=== PATIENT | male | born 1930 | race Caucasian/White ===

== ENCOUNTER 2019-09-09 16:41 | Inpatient (IN) | payer MEDICARE ==
--- NOTE | 2019-09-09 17:06 | ER Document Report ---
ED Medical Screen (RME) - General Chief Complaint: Abdominal Pain Stated Complaint: ABDOMINAL PAIN Time Seen by Provider: 09/09/19 16:56 Primary Care Provider: KOKI MCKEON MD [Primary Care Provider] - Follow up as needed Mode of Arrival: Medic Information source: Patient Notes: 88-year-old male came into the emergency department with complaints of sudden onset abdominal pain approximately 2 hours prior to arrival. Patient's reports nausea but denies any vomiting, diarrhea or fever. She states she has never seen a back pain like this before patient is shaking in the bed, he appears to be in significant distress. Patient does have a history of diverticulitis, states this does not feel similar at all. Patient is mildly tachycardic with a heart rate of 110-115, respiratory rate is 34, blood pressure elevated at 165/81. Due to the sudden onset of pain as well as nature of patient's presentation I am concerned for acute abdomen versus dissection. Orders placed in system I have greeted and performed a rapid initial assessment of this patient. A comprehensive ED assessment and evaluation of the patient, analysis of test results and completion of the medical decision making process will be conducted by additional ED providers. I have specifically instructed the patient or family members with the patient to immediately return to any nursing staff should anything change in the patient's condition or with their chief complaint. - Related Data Allergies/Adverse Reactions: No Known Allergies Allergy (Unverified 02/11/12 04:28) Past Medical History - Past Medical History Cardiac Medical History: Reports: Hx Hypercholesterolemia, Hx Hypertension Endocrine Medical History: Reports: Hx Diabetes Mellitus Type 2 GI Medical History: Reports: Hx Hiatal Hernia - 4 - Immunizations Hx Diphtheria, Pertussis, Tetanus Vaccination: Yes Doctor's Discharge - Discharge Referrals: KOKI MCKEON MD [Primary Care Provider] - Follow up as needed
[2019-09-09] MEDS ORDERED: MORPHINE SULFATE 10 MG/ML INJ IV ONE (17:11)
[2019-09-09] MEDS ORDERED: ONDANSETRON HCL INJ/PF 4 MG/2 ML SDV IV ONE (17:11)
[2019-09-09 17:40] LABS: ABSOLUTE LYMPHOCYTES (AUTO) 0.7 10^3/uL (0.5-4.7); ABSOLUTE MONOCYTES (AUTO) 0.2 10^3/uL (0.1-1.4); ABSOLUTE NEUT (AUTO) 8.4 10^3/uL (1.7-8.2); BASOPHILS % (AUTO) 0.1 % (0-2); EOSINOPHILS % (AUTO) 0.4 % (0-6); HEMATOCRIT 39.9 % (37.9-51.0); HEMOGLOBIN 13.7 g/dL (13.5-17.0); LYMPHOCYTES % (AUTO) 7.6 % (13-45); MEAN CORPUSCULAR HEMOGLOBIN 31.8 pg (27.0-33.4); MEAN CORPUSCULAR HGB CONC 34.2 g/dL (32.0-36.0); MEAN CORPUSCULAR VOLUME 93 fl (80-97); MONOCYTES % (AUTO) 1.8 % (3-13); PLATELET COUNT 174 10^3/uL (150-450); RED CELL DISTRIBUTION WIDTH 13.6 % (11.5-14.0); SEGMENTED NEUTROPHILS % (AUTO) 90.1 % (42-78); TOTAL CELLS COUNTED % (AUTO) 100 %; WHITE BLOOD COUNT 9.3 10^3/uL (4.0-10.5)
[2019-09-09 17:53] LABS: ALBUMIN 3.7 g/dL (3.5-5.0); ALKALINE PHOSPHATASE 322 U/L (38-126); ASPARTATE AMINO TRANSFERASE 688 U/L (17-59); BILIRUBIN,DIRECT 1.3 mg/dL (0.0-0.4); BILIRUBIN,TOTAL 1.9 mg/dL (0.2-1.3); BLOOD UREA NITROGEN 27 mg/dL (7-20); CARBON DIOXIDE 24 mmol/L (22-30); GLUCOSE 125 mg/dL (75-110); POTASSIUM 3.9 mmol/L (3.6-5.0); TOTAL PROTEIN 6.6 g/dL (6.3-8.2)
[2019-09-09] MEDS ORDERED: NORMAL SALINE 1000 ML 1,000 ML IV ONE (17:53)
[2019-09-09] MEDS ORDERED: NORMAL SALINE 500 ML IV ONE ×2 (17:53→18:49)
--- NOTE | 2019-09-09 17:54 | ER Document Report ---
ED General - General Chief Complaint: Abdominal Pain Stated Complaint: ABDOMINAL PAIN Time Seen by Provider: 09/09/19 16:56 Mode of Arrival: Medic - Related Data Allergies/Adverse Reactions: No Known Allergies Allergy (Unverified 02/11/12 04:28) Past Medical History - General Information source: Patient - Social History Smoking Status: Current Every Day Smoker Family History: Reviewed & Not Pertinent - Past Medical History Cardiac Medical History: Reports: Hx Hypercholesterolemia, Hx Hypertension Endocrine Medical History: Reports: Hx Diabetes Mellitus Type 2 GI Medical History: Reports: Hx Hiatal Hernia - 4 - Immunizations Hx Diphtheria, Pertussis, Tetanus Vaccination: Yes Physical Exam - Vital signs Vitals: Resp Pulse Ox 18 90 L 09/09/19 16:56 09/09/19 16:56 - Notes Notes: Patient presents emerge department planing acute onset periumbilical pain started 3 hours prior to arrival. He had some nausea with this but no vomiting. Denies any chest pain shortness of breath fevers cough diarrhea or dysuria. said they had pizza for lunch which they usually do not have he does not really have a previous history of fatty food intolerance. He says it still a bit different from his CV[facility] diverticulitis. Pain does not radiate anywhere. He has no pain in his back there is no ripping or tearing in his back and this weakness in his extremities His medical history significant for hypertension diverticulitis. He had previous inguinal hernia repair. He has no diabetes or heart disease. Social history he does not smoke or drink at all Review of systems pertinent positives and negatives in HPI otherwise all the systems were reviewed and acutely negative PHYSICIAN EXAM -vital signs are noted triage note and note from triage reviewed GENERAL: Well-appearing, well-nourished and in __no acute distress when I saw him however when he was seen by the midlevel he was uncomfortable and has rec eived pain medicine____ HEAD: Atraumatic, normocephalic. EYES: Pupils equal round and reactive to light, extraocular movements intact, sclera anicteric, conjunctiva are normal. ENT: nares patent, oropharynx clear without exudates. Lightly dry mucous membranes. NECK: supple without lymphadenopathy LUNGS: Breath sounds clear to auscultation bilaterally and equal. No wheezes rales or rhonchi. HEART: Rapid rate and regular without murmurs ABDOMEN: Soft, nontender, even to deep palpation normoactive bowel sounds. Presenting pulsatile masses. He has good femoral pulses no radial femoral delay. Good pulses in his feet EXTREMITIES: No deformity, no edema. NEUROLOGICAL: He is awake and alert knows he is in the hospital his name and his date of does not know the year but family says does not was know that. Medical smile and facial expressions. Strength is 5/5 in the upper extremities. The quadriceps of 5/5 dorsiflexion plantarflexion of foot are 1/5 bilaterally which says is chronic PSYCH: Normal mood, normal affect. SKIN: Warm, Dry, normal turgor, no rashes or lesions noted. BACK-nontender in the midline there is no pain with sitting Genitourinary without lesions testes and epididymis are nontender Differential diagnosis peptic ulcer viral syndrome small bowel obstruction cholecystitis rhythm Course - Re-evaluation Re-evalutation: 09/09/19 22:41 ED patient is remained stable he did drop his O2 sats after receiving pain medicines was placed on supplemental O2. Was given IV fluids and antibiotics. Decision-making patient presents with abdominal pain with evidence of cholecystitis with possible a common duct stone. I have consult general surgery seen the patient and initially was going to admit the patient however they have requested now that the patient be admitted to the hospitalist consult and I have discussed case with the hospitalist - Vital Signs Vital signs: Temp Pulse Resp BP Pulse Ox 98.4 F 16 104/73 96 09/09/19 22:04 09/09/19 22:04 09/09/19 22:04 09/09/19 22:04 - Laboratory Result Diagrams: 09/09/19 16:55 09/09/19 16:55 Laboratory results interpreted by me: 09/09/19 09/09/19 16:55 16:55 RBC 4.30 L Lymph % (Auto) 7.6 L Dickens % (Auto) 1.8 L Absolute Neuts (auto) 8.4 H Seg Neutrophils % 90.1 H Sodium 153.7 H Anion Gap 24 H BUN 27 H Glucose 125 H Total Bilirubin 1.9 H Direct Bilirubin 1.3 H AST 688 H Alkaline Phosphatase 322 H - Diagnostic Test Radiology reviewed: Reports reviewed - EKG Interpretation by Me Additional EKG results interpreted by me: 09/09/19 22:42 G shows a sinus tachycardia with some artifact and nonspecific ST wave changes Critical Care Note - Critical Care Note Total time excluding time spent on procedures (mins): 35 Discharge - Discharge Clinical Impression: Cholecystitis Condition: Good Disposition: ADMITTED INPATIENT Admitting Provider: Alyx (Hospitalist) Unit Admitted: Telemetry
[2019-09-09 17:58] LABS: CHLORIDE 106 mmol/L (98-107)
[2019-09-09 17:59] LABS: ANION GAP 24 (5-19)
--- NOTE | 2019-09-09 18:14 | RADIOLOGY REPORT (SQ) ---
EXAM DESCRIPTION: CTA CHEST; CTA ABDOMEN; CTA PELVIS COMPLETED DATE/TIME: 09/09/2019 5:40 pm REASON FOR STUDY: SUDDEN ONSET ABD PAIN COMPARISON: None. TECHNIQUE: CT scan of the aorta extending to the iliac bifurcation performed with and without intrav enous contrast using helical scanning technique with dynamic intravenous contrast injection. Images r eviewed with lung, soft tissue, and bone windows. Reconstructed coronal and sagittal MPR images revie wed. All images stored on PACS. Advanced 3D imaging as volume rendering, MIPS, SSD performed? no All CT scanners at this facility use dose modulation, iterative reconstruction, and/or weight based d osing when appropriate to reduce radiation dose to as low as reasonably achievable (ALARA). [facility]: Dose Right [facility]: CareDose [facility]: Dose Right [facility]: Teradose 4D [facility]: SRCH2 CONTRAST TYPE AND DOSE: contrast/concentration: Isovue 350.00 mg/ml; Total Contrast Delivered: 70.0 ml; Total Saline Delivered: 80.0 ml 70 mL Isovue 350- low osmolar. RENAL FUNCTION: Stat examination. LIMITATIONS: None. FINDINGS: NON-CONTRASTED IMAGING: No intramural hematoma. POST-CONTRAST IMAGING: AORTA AND VESSELS: Moderate calcified atherosclerotic changes and tortuosity. No aneurysm. No dissec tion. Renal arteries, SMA, celiac without stenosis. BASE OF THE NECK: Enlarged heterogeneous thyroid isthmus and right lobe. LUNGS: Patent airways. Bibasilar atelectasis. MEDIASTINUM: Left atrial enlargement. No pericardial effusion. Coronary calcifications. No large filling defect within the main pulmonary arterial vasculature. No lymphadenopathy. THORACIC WALL: Mild gynecomastia. LIVER: Normal size. Common bile duct measures at the upper limits of normal for age at 9 mm. No int rahepatic biliary ductal dilatation. SPLEEN: Normal size. No focal lesions. PANCREAS: Fatty atrophic changes. GALLBLADDER: Hydropic gallbladder containing several large gallstones measuring up to 2 cm. Possible small amount of pericholecystic fluid. No obvious wall thickening. ADRENAL GLANDS: No significant masses or asymmetry. RIGHT KIDNEY AND URETER: No mass, calculi or urinary tract obstruction. LEFT KIDNEY AND URETER: Renal sinus cysts. No calculi or urinary tract obstruction. RETROPERITONEUM: No retroperitoneal adenopathy, hemorrhage or masses. BOWEL AND PERITONEAL CAVITY: Nondistended small bowel. Redundant transverse colon. Severe diffuse d iverticular disease without wall thickening or surrounding inflammatory changes. APPENDIX: Normal. ABDOMINAL WALL: No masses. No hernias. BONY STRUCTURES: Degenerative changes throughout the spine. No acute findings. 3-D IMAGING: Confirms the above findings. OTHER: No other significant finding. IMPRESSION: No aortic aneurysm, dissection or significant stenosis. Hydropic gallbladder and cholelithiasis with possible small amount of pericholecystic fluid, findings which may be seen with acute cholecystitis. Common bile duct measuring at the upper limits of greyson l for age at 9 mm without obvious obstructing process. Severe diffuse colon diverticulosis without evidence of acute diverticulitis. Coronary artery disease. Goiter. TECHNICAL DOCUMENTATION: JOB ID: [id number] Quality ID # [id number]: Final reports with documentation of one or more dose reduction techniques (e.g., Au tomated exposure control, adjustment of the mA and/or kV according to patient size, use of iterative reconstruction technique) 2010 [employer]- All Rights Reserved Reading location - IP/workstation name: [email or web address]--[email or web address]
--- NOTE | 2019-09-09 18:14 | RADIOLOGY REPORT (SQ) ---
EXAM DESCRIPTION: CTA CHEST; CTA ABDOMEN; CTA PELVIS COMPLETED DATE/TIME: 09/09/2019 5:40 pm REASON FOR STUDY: SUDDEN ONSET ABD PAIN COMPARISON: None. TECHNIQUE: CT scan of the aorta extending to the iliac bifurcation performed with and without intrav enous contrast using helical scanning technique with dynamic intravenous contrast injection. Images r eviewed with lung, soft tissue, and bone windows. Reconstructed coronal and sagittal MPR images revie wed. All images stored on PACS. Advanced 3D imaging as volume rendering, MIPS, SSD performed? no All CT scanners at this facility use dose modulation, iterative reconstruction, and/or weight based d osing when appropriate to reduce radiation dose to as low as reasonably achievable (ALARA). [facility]: Dose Right [facility]: CareDose [facility]: Dose Right [facility]: Teradose 4D [facility]: Fetchnotes CONTRAST TYPE AND DOSE: contrast/concentration: Isovue 350.00 mg/ml; Total Contrast Delivered: 70.0 ml; Total Saline Delivered: 80.0 ml 70 mL Isovue 350- low osmolar. RENAL FUNCTION: Stat examination. LIMITATIONS: None. FINDINGS: NON-CONTRASTED IMAGING: No intramural hematoma. POST-CONTRAST IMAGING: AORTA AND VESSELS: Moderate calcified atherosclerotic changes and tortuosity. No aneurysm. No dissec tion. Renal arteries, SMA, celiac without stenosis. BASE OF THE NECK: Enlarged heterogeneous thyroid isthmus and right lobe. LUNGS: Patent airways. Bibasilar atelectasis. MEDIASTINUM: Left atrial enlargement. No pericardial effusion. Coronary calcifications. No large filling defect within the main pulmonary arterial vasculature. No lymphadenopathy. THORACIC WALL: Mild gynecomastia. LIVER: Normal size. Common bile duct measures at the upper limits of normal for age at 9 mm. No int rahepatic biliary ductal dilatation. SPLEEN: Normal size. No focal lesions. PANCREAS: Fatty atrophic changes. GALLBLADDER: Hydropic gallbladder containing several large gallstones measuring up to 2 cm. Possible small amount of pericholecystic fluid. No obvious wall thickening. ADRENAL GLANDS: No significant masses or asymmetry. RIGHT KIDNEY AND URETER: No mass, calculi or urinary tract obstruction. LEFT KIDNEY AND URETER: Renal sinus cysts. No calculi or urinary tract obstruction. RETROPERITONEUM: No retroperitoneal adenopathy, hemorrhage or masses. BOWEL AND PERITONEAL CAVITY: Nondistended small bowel. Redundant transverse colon. Severe diffuse d iverticular disease without wall thickening or surrounding inflammatory changes. APPENDIX: Normal. ABDOMINAL WALL: No masses. No hernias. BONY STRUCTURES: Degenerative changes throughout the spine. No acute findings. 3-D IMAGING: Confirms the above findings. OTHER: No other significant finding. IMPRESSION: No aortic aneurysm, dissection or significant stenosis. Hydropic gallbladder and cholelithiasis with possible small amount of pericholecystic fluid, findings which may be seen with acute cholecystitis. Common bile duct measuring at the upper limits of greyson l for age at 9 mm without obvious obstructing process. Severe diffuse colon diverticulosis without evidence of acute diverticulitis. Coronary artery disease. Goiter. TECHNICAL DOCUMENTATION: JOB ID: [id number] Quality ID # [id number]: Final reports with documentation of one or more dose reduction techniques (e.g., Au tomated exposure control, adjustment of the mA and/or kV according to patient size, use of iterative reconstruction technique) 2010 [employer]- All Rights Reserved Reading location - IP/workstation name: [email or web address]--[email or web address]
[2019-09-09] MEDS ORDERED: PIPERACILLIN/TAZOBACTAM 3.375 GM VIAL IV ONE ×2 (18:48→23:33)
--- NOTE | 2019-09-09 19:33 | EKG REPORT ---
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
--- NOTE | 2019-09-09 19:56 | RADIOLOGY REPORT (SQ) ---
EXAM DESCRIPTION: U/S ABDOMEN LIMITED W/O DOP COMPLETED DATE/TIME: 09/09/2019 7:36 pm REASON FOR STUDY: pain COMPARISON: None. TECHNIQUE: Dynamic and static grayscale images acquired of the abdomen and recorded on PACS. Additio nal selected color Doppler and spectral images recorded.Study limited due to acoustical interference from fat or from air in the bowel. LIMITATIONS: Study limited due to acoustical interference from fat or from air in the bowel. FINDINGS: PANCREAS: Not visualized. LIVER: Poorly visualized. LIVER VASCULATURE: Poorly visualized. GALLBLADDER: Multiple gallstones with increased gallbladder wall thickness, 3.7 mm. No pericholecysti c fluid identified. ULTRASOUND-DETECTED VALLES'S SIGN: Negative. Bile DUCTS: CBD measures 9.7 mm diameter. No filling defects. INFERIOR VENA CAVA: Normal flow. AORTA: No aneurysm identified. RIGHT KIDNEY: Normal size. Normal echogenicity. No solid or suspicious masses. No hydronephros is. No calcifications. PERITONEAL AND RIGHT PLEURAL SPACE: No ascites or effusions. OTHER: No other significant findings. IMPRESSION: Multiple gallstones with increased gallbladder wall thickness, 3.7 mm. No pericholecysti c fluid identified.CBD measures 9.7 mm diameter. No filling defects. Poorly visualized pancreas and liver due to acoustical interference from fat -bowel gas. TECHNICAL DOCUMENTATION: JOB ID: [id number] [place]-72 2010 [employer]- All Rights Reserved Reading location - IP/workstation name: [facility]
[2019-09-09] MEDS ORDERED: METOPROLOL TARTRATE PF/INJ 5 MG/5 ML SDV IV PRN (21:32)
[2019-09-09] MEDS ORDERED: MORPHINE SULFATE 10 MG/ML INJ IV PRN ×3 (21:32)
[2019-09-09] MEDS ORDERED: ACETAMINOPHEN 650 MG SUPP.RECT PR PRN (21:32)
[2019-09-09] MEDS ORDERED: LEVALBUTEROL HCL NEB 0.63 MG/3 ML AMPUL NEB PRN (21:32)
[2019-09-09] MEDS ORDERED: HYDRALAZINE HCL INJ/PF 20 MG/1 ML SDV IV PRN (21:32)
[2019-09-09] MEDS ORDERED: DEXTROSE 50%-WATER 25 GM/50 ML DISP.SYRIN IV PRN ×2 (21:33)
[2019-09-09] MEDS ORDERED: GLUCAGON,HUMAN RECOMB 1 MG INJ IM PRN (21:33)
[2019-09-09] MEDS ORDERED: DEXTROSE 40% GEL 15 GM TUBE PO PRN ×2 (21:33)
--- NOTE | 2019-09-09 22:16 | PDOC CONSULTATION ---
Consultation Consult Date: 09/09/19 Provider Consulted: PALMA SMITH Consult reason:: Right upper quadrant pain History of Present Illness Admission Date/PCP: KOKI MCKEON Patient complains of: Epigastric and right upper quadrant pain History of Present Illness: The patient is an 88-year-old male who is brought to the emergency department by his . 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 The patient uses a walker for limited ambulation. He has a past medical history of hypertension, inguinal hernia repair. denies previous stroke, cardiac condition, or other major medical problems. The patient comes to the hospital with a complaint of epigastric and upper abdominal pain with intense nausea for the past 24 hours. The and the patient denies similar pain in the past. An ultrasound of the gallbladder has been done revealing a thickened gallbladder wall approximately 3.7 mm, a dilated common bile duct measuring approximately 9.7 mm, and multiple gallstones. Similar findings are identified on CT scan. His blood work reveals a moderately elevated total bilirubin of 1.9 mostly direct (1.3) with transaminitis (elevated AST / ALT= 688 / 599, respectively) and elevated alkaline phosphatase, 322. The patient appears to have poor understanding of his surroundings; however, he is somewhat answering appropriately to some of the questions during the interview. Past Medical History Cardiac Medical History: Reports: Hyperlipidema, Hypertension Endocrine Medical History: Reports: Diabetes Mellitus Type 2 GI Medical History: Reports: Hiatal Hernia - 4 Social History Smoking Status: Unknown if Ever Smoked Family History Parental Family History Reviewed: No Children Family History Reviewed: No Sibling(s) Family History Reviewed.: No Medication/Allergy Home Medications: Finasteride 5 mg PO 02/11/12 Lisinopril [Prinivil 40 mg Tablet] 02/11/12 Lovastatin [Mevacor] 02/11/12 Omeg3/Dha/Epa/Fish Oil/L.casei [Restora Capsule] 02/11/12 Oxybutynin Chloride 02/11/12 Terazosin HCl 02/11/12 Allergies/Adverse Reactions: No Known Allergies Allergy (Unverified 02/11/12 04:28) Physical Exam Vital Signs: Temp Pulse Resp BP Pulse Ox 97.8 F 20 105/62 95 09/09/19 17:00 09/09/19 19:01 09/09/19 19:00 09/09/19 19:01 Intake & Output 09/08/19 09/09/19 09/10/19 06:59 06:59 06:59 Intake Total 1000 Balance 1000 Weight 77.111 kg General appearance: PRESENT: no acute distress, thin, other - Patient appears to be forgetful, slow to respond to questions Head exam: PRESENT: atraumatic, normocephalic Eye exam: PRESENT: EOMI Mouth exam: PRESENT: dry mucosa Teeth exam: PRESENT: poor dentation Neck exam: PRESENT: other - Recent promotion Respiratory exam: PRESENT: clear to auscultation mayank, decreased breath sounds Cardiovascular exam: PRESENT: RRR GI/Abdominal exam: PRESENT: hypoactive bowel sounds, soft, tenderness - In the right upper quadrant and epigastrium, no masses appreciated, Rectal exam: PRESENT: deferred Extremities exam: PRESENT: other - Decreased range of motion of both shoulders, hips, and knees Neurological exam: PRESENT: altered - Patient appears to have a poor understanding of his surroundings, other - Decreased motor function below knee bilaterally, decreased handgrip bilaterally Results Laboratory Results: 09/09/19 16:55 09/09/19 16:55 09/09/19 09/09/19 09/09/19 16:55 16:55 17:46 WBC 9.3 RBC 4.30 L Hgb 13.7 Hct 39.9 MCV 93 MCH 31.8 MCHC 34.2 RDW 13.6 Plt Count 174 Seg Neutrophils % 90.1 H Sodium 153.7 H Potassium 3.9 Chloride 106 Carbon Dioxide 24 Anion Gap 24 H BUN 27 H Creatinine 0.80 Est GFR ( Amer) > 60 Glucose 125 H Lactic Acid 0.9 Calcium 9.0 Total Bilirubin 1.9 H AST 688 H Alkaline Phosphatase 322 H Total Protein 6.6 Albumin 3.7 Lipase 69.0 09/09/19 16:55 Troponin I < 0.012 Impressions: Chest/Abdomen CTA 09/09/19 16:59 IMPRESSION: No aortic aneurysm, dissection or significant stenosis. Hydropic gallbladder and cholelithiasis with possible small amount of pericholecystic fluid, findings which may be seen with acute cholecystitis. Common bile duct measuring at the upper limits of normal for age at 9 mm without obvious obstructing process. Severe diffuse colon diverticulosis without evidence of acute diverticulitis. Coronary artery disease. Goiter. Pelvis CTA 09/09/19 16:59 IMPRESSION: No aortic aneurysm, dissection or significant stenosis. Hydropic gallbladder and cholelithiasis with possible small amount of pericholecystic fluid, findings which may be seen with acute cholecystitis. Common bile duct measuring at the upper limits of normal for age at 9 mm without obvious obstructing process. Severe diffuse colon diverticulosis without evidence of acute diverticulitis. Coronary artery disease. Goiter. Abdomen Ultrasound 09/09/19 18:36 IMPRESSION: Multiple gallstones with increased gallbladder wall thickness, 3.7 mm. No pericholecystic fluid identified.CBD measures 9.7 mm diameter. No filling defects. Poorly visualized pancreas and liver due to acoustical interference from fat - bowel gas. Assessment & Plan - Plan Summary Plan Summary: Assessment: Epigastric pain, right upper quadrant pain for the past [address] scan of the abdomen reveal a 3.7 mm thick gallbladder wall and borderline dilated common bile duct, measuring 9.7 mm Cholelithiasis and pericholecystic fluid on ultrasound and CT scan Transaminitis and hyperbilirubinemia (1.9) together with elevated alkaline phosphatase The patient presents with initial symptoms of dementia, decreased memory Diffuse motor deficits: His physical exam demonstrates decreased bilateral handgrip and leg motility. Very limited activity level as the patient is mostly bedridden Finally, all the above indicate poor surgical candidacy Unknown cardiac status The patient is DNR according to his ; However, documentation is not available at this time Plan: Hospitalist service to admit this patient to evaluate his medical condition or other occult pathologies Cardiology consultation Echocardiogram in the morning After the above, a discussion will be entertained with the patient and his whether or not he is suitable candidate for any invasive/surgical procedure, or he should undergo only conservative management of this condition
[2019-09-09] MEDS: FAMOTIDINE INJ/PF 20 MG/2 ML SDV IV SCH (23:15)
[2019-09-09] MEDS: RINGERS SOLUTION,LACTATED 1,000 ML IV PRN (23:16)
[2019-09-09] MEDS: HEPARIN SOD (PORCINE) 5,000 UNIT/ML 1 ML VIAL SUBCUT SCH (23:19)
[2019-09-09] MEDS: INSULIN REG, HUMAN 100 UNIT/ML 3 ML VIAL (PYX) SUBCUT SCH (23:19)
--- NOTE | 2019-09-09 23:48 | PDOC H&P ---
History of Present Illness Admission Date/PCP: 09/09/2019 21:13 KOKI MCKEON Patient complains of: Abdominal pain History of Present Illness: FRANKLYN ACEVEDO is a 88 year old male who presented to the emergency room with acute abdominal pain. Patient and his admit the sudden onset of severe constant colicky periumbilical pain without radiation 2 to 3 hours prior to their emergency room presentation. Pain was accompanied by nausea and associated with severe restlessness. They deny other associated or accompanying signs and symptoms. They deny prior similar episodes. They have not identified any aggravating or ameliorating factors for his abdominal pain. In the emergency room patient was found to have cholelithiasis with presumed early acute cholecystitis. Initially surgery planned to admit the patient however they have now decided to have the medicine service admit the patient and consult them for further evaluation. Past Medical History Cardiac Medical History: Reports: Hyperlipidema, Hypertension Denies: Coronary Artery Disease, Myocardial Infarction Pulmonary Medical History: Denies: Asthma, Chronic Obstructive Pulmonary Disease (COPD) EENT Medical History: Denies: Cataracts, Ears - Hearing aids Neurological Medical History: Denies: Hemorrhagic CVA, Ischemic CVA, Seizures Endocrine Medical History: Reports: Diabetes Mellitus Type 2 Denies: Diabetes Mellitus Type 1, Hyperthyroidism, Hypothyroidism, Obesity Renal/ Medical History: Reports: Other - Benign prostatic hyperplasia, urinary incontinence Denies: Chronic Kidney Disease, Nephrolithiasis Malignancy Medical History: Reports: None GI Medical History: Reports: Diverticulitis, Hiatal Hernia Denies: Cirrhosis, Crohn's Disease, Hepatitis, Ulcerative Colitis Musculoskeltal Medical History: Reports: Arthritis - Osteoarthritis multiple joints, Other - Ambulatory dysfunction since knee surgeries, requires walker Denies: Gout Skin Medical History: Denies: Eczema, Psoriasis Psychiatric Medical History: Denies: Alcohol Dependency, Substance Abuse, Tobacco Dependency Traumatic Medical History: Reports: None Hematology: Denies: Anemia, Bleeding Tendencies Infectious Medical History: Reports: None Past Surgical History Past Surgical History: Reports: Herniorrhaphy - X7 repairs, Knee Replacement, Orthopedic Surgery - Bilateral arthroscopies of the knees Social History Information Source: Relative - Spouse Lives with: Spouse/Significant other Smoking Status: Never Smoker Electronic Cigarette use?: No Frequency of Alcohol Use: None Hx Recreational Drug Use: No Drugs: None Hx Prescription Drug Abuse: No - Advance Directive Resuscitation Status: Full Code Surrogate healthcare decision maker:: [place] Acevedo Family History Family History: denies: CAD, DM, Hypertension, Malignancy Parental Family History Reviewed: Yes Children Family History Reviewed: No Sibling(s) Family History Reviewed.: Yes Medication/Allergy Home Medications: Lisinopril [Prinivil 40 mg Tablet] 20 mg PO DAILY 02/11/12 Allergies/Adverse Reactions: No Known Allergies Allergy (Unverified 02/11/12 04:28) Review of Systems Constitutional: ABSENT: chills, fever(s) Eyes: ABSENT: visual disturbances, other - Eye pain Ears: ABSENT: hearing changes, other - Ear pain Nose, Mouth, and Throat: ABSENT: headache(s), mouth pain, sore throat Cardiovascular: ABSENT: chest pain, palpitations Respiratory: ABSENT: cough, dyspnea Gastrointestinal: PRESENT: as per HPI, abdominal pain, nausea. ABSENT: constipation, diarrhea, vomiting Genitourinary: ABSENT: dysuria, hematuria Musculoskeletal: ABSENT: back pain, joint swelling, muscle weakness Integumentary: ABSENT: pruritus, rash Neurological: ABSENT: confusion, convulsions, focal weakness, memory loss, syncope Psychiatric: ABSENT: anxiety, depression Endocrine: ABSENT: cold intolerance, heat intolerance Hematologic/Lymphatic: ABSENT: easy bleeding, easy bruising Allergic/Immunologic: ABSENT: seasonal rhinorrhea Physical Exam Vital Signs: Temp Pulse Resp BP Pulse Ox 97.8 F 20 105/62 95 09/09/19 17:00 09/09/19 19:01 09/09/19 19:00 09/09/19 19:01 Intake & Output 09/07/19 09/08/19 09/09/19 23:59 23:59 23:59 Intake Total 1000 Balance 1000 Weight 77.111 kg General appearance: PRESENT: cooperative, mild distress - Secondary to abdominal pain Head exam: PRESENT: atraumatic, normocephalic Eye exam: PRESENT: conjunctiva pink. ABSENT: conjunctival injection, scleral icterus Ear exam: PRESENT: normal external ear exam. ABSENT: bleeding, drainage Mouth exam: PRESENT: dry mucosa, neck supple Neck exam: ABSENT: JVD, thyromegaly, tracheal deviation Respiratory exam: PRESENT: clear to auscultation mayank, symmetrical, unlabored Cardiovascular exam: PRESENT: RRR. ABSENT: clicks, gallop, rubs Pulses: PRESENT: normal radial pulses, normal dorsalis pedis pul Vascular exam: PRESENT: normal capillary refill. ABSENT: pallor GI/Abdominal exam: PRESENT: hypoactive bowel sounds, soft, tenderness - Moderate to severe periumbilical and right upper quadrant tenderness on light and deep palpation Rectal exam: PRESENT: deferred Extremities exam: ABSENT: joint swelling, pedal edema Musculoskeletal exam: ABSENT: deformity, dislocation Neurological exam: PRESENT: altered - Sedated after receiving morphine, CN II- XII grossly intact. ABSENT: motor sensory deficit Psychiatric exam: PRESENT: appropriate affect, normal mood, other - Exam very limited due to sedation after receiving morphine Skin exam: PRESENT: dry, intact, warm. ABSENT: jaundice, rash, urticaria Results Laboratory Results: 09/09/19 16:55 09/09/19 16:55 09/09/19 09/09/19 09/09/19 16:55 16:55 17:46 WBC 9.3 RBC 4.30 L Hgb 13.7 Hct 39.9 MCV 93 MCH 31.8 MCHC 34.2 RDW 13.6 Plt Count 174 Seg Neutrophils % 90.1 H Sodium 153.7 H Potassium 3.9 Chloride 106 Carbon Dioxide 24 Anion Gap 24 H BUN 27 H Creatinine 0.80 Est GFR ( Amer) > 60 Glucose 125 H Lactic Acid 0.9 Calcium 9.0 Total Bilirubin 1.9 H AST 688 H Alkaline Phosphatase 322 H Total Protein 6.6 Albumin 3.7 Lipase 69.0 09/09/19 16:55 Troponin I < 0.012 Impressions: Chest/Abdomen CTA 09/09/19 16:59 IMPRESSION: No aortic aneurysm, dissection or significant stenosis. Hydropic gallbladder and cholelithiasis with possible small amount of pericholecystic fluid, findings which may be seen with acute cholecystitis. Common bile duct measuring at the upper limits of normal for age at 9 mm without obvious obstructing process. Severe diffuse colon diverticulosis without evidence of acute diverticulitis. Coronary artery disease. Goiter. Pelvis CTA 09/09/19 16:59 IMPRESSION: No aortic aneurysm, dissection or significant stenosis. Hydropic gallbladder and cholelithiasis with possible small amount of pericholecystic fluid, findings which may be seen with acute cholecystitis. Common bile duct measuring at the upper limits of normal for age at 9 mm without obvious obstructing process. Severe diffuse colon diverticulosis without evidence of acute diverticulitis. Coronary artery disease. Goiter. Abdomen Ultrasound 09/09/19 18:36 IMPRESSION: Multiple gallstones with increased gallbladder wall thickness, 3.7 mm. No pericholecystic fluid identified.CBD measures 9.7 mm diameter. No filling defects. Poorly visualized pancreas and liver due to acoustical interference from fat - bowel gas. Assessment and Plan - Diagnosis (1) Biliary colic Is this a current diagnosis for this admission?: Yes (2) Acute cholecystitis due to biliary calculus Is this a current diagnosis for this admission?: Yes (3) Hypertension Qualifiers: Hypertension type: essential hypertension Qualified Code(s): I10 - Essential (primary) hypertension Is this a current diagnosis for this admission?: Yes (4) Hyperlipidemia Qualifiers: Hyperlipidemia type: unspecified Qualified Code(s): E78.5 - Hyperlipidemia, unspecified Is this a current diagnosis for this admission?: Yes (5) Benign prostatic hyperplasia Qualifiers: Lower urinary tract symptom presence: unspecified whether lower urinary tract symptoms present Qualified Code(s): N40.0 - Benign prostatic hyperplasia without lower urinary tract symptoms Is this a current diagnosis for this admission?: Yes (6) Urinary incontinence Qualifiers: Urinary Incontinence type: unspecified incontinence Qualified Code(s): R32 - Unspecified urinary incontinence Is this a current diagnosis for this admission?: Yes - Plan Summary Summary: Patient will be admitted to the medical floor where he will receive routine supp ortive and symptomatic cares. He will be treated with IV fluids utilizing lactated Ringer's at 167 mL/h initially. His pain will be treated with morphine sulfate 2 to 4 mg IV every 2 hours on an as-needed basis utilizing a sliding scale for pain. He will be treated with Zosyn 3.375 g IV every 6 hours. A surgical consultation with Dr. Sloan has been obtained. Before meals and at bedtime Accu-Cheks will be obtained with a sliding scale insulin for hyperglycemia and a hypoglycemic protocol in place. If patient develops hypertension it will be controlled with IV metoprolol and/or IV hydralazine to maintain a blood pressure less than 160 systolic and less than 100 diastolic. Patient will be n.p.o. pending surgery's decisions on intervention. Daily CBCs and metabolic profiles will be followed as indicated. - Time Time Spent with patient: 15-24 minutes Medications reviewed and adjusted accordingly: Yes Anticipated discharge: Home - Inpatient Certification Based on my medical assessment, after consideration of the patient's comorbidities, presenting symptoms, or acuity I expect that the services needed warrant INPATIENT care.: Yes I certify that my determination is in accordance with my understanding of Medicare's requirements for reasonable and necessary INPATIENT services [42 CFR 412.3e].: Yes Medical Necessity: Need Close Monitoring Due to Risk of Patient Decompensation, Need For IV Fluids, Need for Pain Control, Need for IV Antibiotics, Need for Surgery, Risk of Complication if Not Cared For in Hospital, Risk of Diagnosis Which Will Require Inpatient Eval/Care/Monitoring
--- NOTE | 2019-09-09 23:54 | ADVANCED CARE ---
- Diagnosis (1) Biliary colic Diagnosis Current: Yes (2) Acute cholecystitis due to biliary calculus Diagnosis Current: Yes (3) Hypertension Diagnosis Current: Yes (4) Hyperlipidemia Diagnosis Current: Yes (5) Benign prostatic hyperplasia Diagnosis Current: Yes (6) Urinary incontinence Diagnosis Current: Yes Attendance: Myself, the patient and his spouse, Edna. Resuscitation Status: Do Not Resuscitate Discussion: After a brief discussion the patient's informed me that he had determined that he wished to be a DO NOT RESUSCITATE patient in the past. She indicates that they have a document at home that shows his DO NOT RESUSCITATE status in the event of an EMS arrival. She did not bring the document with her but is willing to go home and get it if it is necessary. After another brief discussion I indicated to her that it would not be necessary for her to bring the document since she and her both expressed their desire for a DO NOT RESUSCITATE status. Care Planning Goals: Obtaining documentation of DO NOT RESUSCITATE status from the patient's home when convenient. Document(s) Completed: DO NOT RESUSCITATE order has been initiated for this hospital stay. Time Spent: 16 minutes
[2019-09-10] MEDS ORDERED: PIPERACILLIN/TAZOBACTAM 3.375 GM VIAL IV PRN
[2019-09-10] MEDS: PIPERACILLIN SODIUM/TAZOBACTAM 3.375 GM in NORMAL SALINE 100 ML IV SCH ×4 (04:45→20:25)
[2019-09-10] MEDS: ONDANSETRON HCL INJ/PF 4 MG/2 ML SDV IV PRN ×2 (04:46→10:32)
[2019-09-10] MEDS: HEPARIN SOD (PORCINE) 5,000 UNIT/ML 1 ML VIAL SUBCUT SCH ×3 (05:00→23:38)
[2019-09-10 05:59] LABS: HEMATOCRIT 36.3 % (37.9-51.0); HEMOGLOBIN 12.2 g/dL (13.5-17.0); MEAN CORPUSCULAR HEMOGLOBIN 31.2 pg (27.0-33.4); MEAN CORPUSCULAR HGB CONC 33.6 g/dL (32.0-36.0); MEAN CORPUSCULAR VOLUME 93 fl (80-97); PLATELET COUNT 159 10^3/uL (150-450); RED BLOOD COUNT 3.91 10^6/uL (4.35-5.55); RED CELL DISTRIBUTION WIDTH 13.9 % (11.5-14.0); WHITE BLOOD COUNT 12.3 10^3/uL (4.0-10.5)
[2019-09-10 06:21] LABS: ALBUMIN 3.4 g/dL (3.5-5.0); ALKALINE PHOSPHATASE 340 U/L (38-126); AMYLASE 39 U/L (30-110); ANION GAP 12 (5-19); ASPARTATE AMINO TRANSFERASE 582 U/L (17-59); BILIRUBIN,DIRECT 1.8 mg/dL (0.0-0.4); BILIRUBIN,TOTAL 2.3 mg/dL (0.2-1.3); BLOOD UREA NITROGEN 27 mg/dL (7-20); CALCIUM 9.4 mg/dL (8.4-10.2); CARBON DIOXIDE 22 mmol/L (22-30); CHLORIDE 106 mmol/L (98-107); CHOLESTEROL 185.86 mg/dL (0-200); GLUCOSE 139 mg/dL (75-110); POTASSIUM 4.2 mmol/L (3.6-5.0); TOTAL PROTEIN 6.2 g/dL (6.3-8.2); TRIGLYCERIDES 61 mg/dL (<150)
[2019-09-10 06:32] LABS: DIRECT LDL 96 mg/dL (<100)
[2019-09-10 06:36] LABS: FREE T3 1.6 pg/mL (2.77-5.27)
[2019-09-10 06:50] LABS: THYROID STIMULATING HORMONE 1.65 uIU/mL (0.47-4.68)
[2019-09-10] MEDS: INSULIN REG, HUMAN 100 UNIT/ML 3 ML VIAL (PYX) SUBCUT SCH ×3 (08:28→17:06)
[2019-09-10] MEDS: FAMOTIDINE INJ/PF 20 MG/2 ML SDV IV SCH (09:22)
[2019-09-10] MEDS: RINGERS SOLUTION,LACTATED 1,000 ML IV PRN ×2 (11:51→23:50)
[2019-09-10] MEDS ORDERED: PROMETHAZINE HCL INJ 25 MG/1 ML VIAL ONE (11:56)
--- NOTE | 2019-09-10 13:25 | PDOC PROGRESS REPORT ---
Subjective Progress Note for:: 09/10/19 Subjective:: Patient has no complaints this morning. He says his abdominal pain is nearly resolved. He is confused at times and hard of hearing, but does well with his at bedside. Reason For Visit: ACUTE CHOLECYSTITIS Physical Exam Vital Signs: Temp Pulse Resp BP Pulse Ox 97.6 F 64 16 124/67 95 09/10/19 08:00 09/10/19 08:00 09/10/19 08:00 09/10/19 08:00 09/10/19 08:00 Intake & Output 09/09/19 09/10/19 09/11/19 06:59 06:59 06:59 Intake Total 3100 100 Output Total 200 Balance 2900 100 Weight 79.7 kg General appearance: PRESENT: no acute distress GI/Abdominal exam: PRESENT: other - Tender right upper quadrant to deep palpation; no peritoneal signs no rigidity no organomegaly distended. Results Laboratory Results: 09/10/19 04:53 09/10/19 04:53 09/09/19 09/09/19 09/09/19 16:55 16:55 17:46 WBC 9.3 RBC 4.30 L Hgb 13.7 Hct 39.9 MCV 93 MCH 31.8 MCHC 34.2 RDW 13.6 Plt Count 174 Seg Neutrophils % 90.1 H Sodium 153.7 H Potassium 3.9 Chloride 106 Carbon Dioxide 24 Anion Gap 24 H BUN 27 H Creatinine 0.80 Est GFR ( Amer) > 60 Glucose 125 H Lactic Acid 0.9 Calcium 9.0 Magnesium Total Bilirubin 1.9 H AST 688 H Alkaline Phosphatase 322 H Total Protein 6.6 Albumin 3.7 Triglycerides Cholesterol LDL Cholesterol Direct VLDL Cholesterol HDL Cholesterol Amylase Lipase 69.0 TSH Free T3 pg/mL 09/10/19 09/10/19 09/10/19 04:53 04:53 04:53 WBC 12.3 H RBC 3.91 L Hgb 12.2 L Hct 36.3 L MCV 93 MCH 31.2 MCHC 33.6 RDW 13.9 Plt Count 159 Seg Neutrophils % Sodium 140.4 Potassium 4.2 Chloride 106 Carbon Dioxide 22 Anion Gap 12 BUN 27 H Creatinine 0.94 Est GFR ( Amer) > 60 Glucose 139 H Lactic Acid Calcium 9.4 Magnesium 2.2 Total Bilirubin 2.3 H AST 582 H Alkaline Phosphatase 340 H Total Protein 6.2 L Albumin 3.4 L Triglycerides 61 Cholesterol 185.86 LDL Cholesterol Direct 96 VLDL Cholesterol 12.0 HDL Cholesterol 48 Amylase 39 Lipase 26.4 TSH 1.65 Free T3 pg/mL 1.60 L 09/09/19 16:55 Troponin I < 0.012 Impressions: Chest/Abdomen CTA 09/09/19 16:59 IMPRESSION: No aortic aneurysm, dissection or significant stenosis. Hydropic gallbladder and cholelithiasis with possible small amount of pe richolecystic fluid, findings which may be seen with acute cholecystitis. Common bile duct measuring at the upper limits of normal for age at 9 mm without obvious obstructing process. Severe diffuse colon diverticulosis without evidence of acute diverticulitis. Coronary artery disease. Goiter. Pelvis CTA 09/09/19 16:59 IMPRESSION: No aortic aneurysm, dissection or significant stenosis. Hydropic gallbladder and cholelithiasis with possible small amount of perichole cystic fluid, findings which may be seen with acute cholecystitis. Common bile duct measuring at the upper limits of normal for age at 9 mm without obvious obstructing process. Severe diffuse colon diverticulosis without evidence of acute diverticulitis. Coronary artery disease. Goiter. Abdomen Ultrasound 09/09/19 18:36 IMPRESSION: Multiple gallstones with increased gallbladder wall thickness, 3.7 mm. No pericholecystic fluid identified.CBD measures 9.7 mm diameter. No filling defects. Poorly visualized pancreas and liver due to acoustical interference from fat - bowel gas. Assessment & Plan - Diagnosis (1) Acute cholecystitis due to biliary calculus Is this a current diagnosis for this admission?: Yes Plan: Impression: Symptomatic cholelithiasis with cholecystitis mild elevation in LFTs 88-year-old male with chronic Alzheimer's and Parkinson's disease, DNR status. Recommendations: 1. Patient being effectively managed with IV fluids and antibiotics with no evidence of sepsis escalation 2. Explained to patient and his the clinical management of symptomatic cholelithiasis which could include intravenous antibiotics, drain placement, or surgery. Patient is reasonably functional with appropriate home support, and ambulates with a walker. He underwent general anesthesia 2 years ago in [place] for laparoscopic hernia repair and had no complications. He has no history of heart attack stroke kidney failure. 3. Patient will be evaluated by Dr. Betancourt, soap mixer. Echocardiogram ordered. Pending results of this evaluation, we will counseled patient and family regarding risk benefits and alternatives to surgical intervention. The above discussed with patient and his . (2) Dementia Is this a current diagnosis for this admission?: Yes - Time Time Spent with patient: 15-24 minutes Medications reviewed and adjusted accordingly: Yes Anticipated discharge: Home
[2019-09-10] MEDS ORDERED: DIPHENHYDRAMINE HCL 50 MG/ML VIAL ONE (13:43)
[2019-09-10] MEDS ORDERED: DIPHENHYDRAMINE HCL 50 MG/ML VIAL IV ONE (14:45)
--- NOTE | 2019-09-10 15:54 | XCELERA REPORT ---
[address] [address] Transthoracic Echocardiogram Report Name: FRANKLYN FRIEND Age: 88 yrs Gender: Male : 1930 Patient Status: Inpatient Patient Location: [address] [place] [address] Study Date: 09/10/2019 09:41 AM Height: 71 in Weight: 170 lb BSA: 2.0 m2 Procedure: A two-dimensional transthoracic echocardiogram with color flow and Doppler was performed. The study was technically limited with all images being suboptimal in quality. Reason For Study: Murmur / preop cardiac clearance History: Murmur / preop cardiac clearance. Ordering Physician: PALMA SMITH Performed By: Renate Taylor Interpretation Summary The left ventricle is normal in size. There is normal left ventricular wall thickness. LV EF is 60% to 65% Left ventricular systolic function is normal. Doppler measurements suggest normal left ventricular diastolic function The left ventricular wall motion is normal. There is no thrombus. Cannot assess ASD,VSD,or PFO, The right ventricle is not well visualized secondary to technical limitations Proabably mildy dilated. The right atrium is normal. The left atrial size is normal. There is no evidence of mitral valve prolapse. There is no vegetation seen on the mitral valve. There is no mitral valve stenosis. There is a trace amount of mitral regurgitation There is no aortic valvular vegetation. There is no aortic valve stenosis There is aortic sclerosis without aortic stenosis. There is no LVOT obstruction. No aortic regurgitation is present. There is no tricuspid stenosis. There is a trace to mild amount of tricuspid regurgitation There is mild pulmonary hypertension by echo RVSP is 37 to 42 mm of mm of Hg , with RA mean of 5 to 10. There is no pulmonic valvular stenosis. There is a trace amount of pulmonic regurgitation The aortic root is normal size. The inferior vena cava appeared normal and decreased < 50% with respiration (RAP 10-15 mmHg) There is no pericardial effusion. MMode/2D Measurements & Calculations RVDd: 3.3 cm LVIDd: 3.4 cm FS: 33.6 % Ao root diam: 3.1 cm IVSd: 1.0 cm LVIDs: 2.3 cm EDV(Teich): 47.3 ml Ao root area: 7.6 cm2 LVPWd: 1.0 cm ESV(Teich): 17.2 ml LA dimension: 3.7 cm EF(Teich): 63.6 % Doppler Measurements & Calculations MV E max giancarlo: MV P1/2t max giancarlo: Ao V2 max: LV V1 max P.3 cm/sec 92.3 cm/sec 172.2 cm/sec 2.7 mmHg MV A max giancarlo: MV P1/2t: 56.6 msec Ao max PG: LV V1 max: 75.5 cm/sec MVA(P1/2t): 3.9 cm2 11.9 mmHg 81.9 cm/sec MV E/A: 1.2 MV dec slope: 477.7 cm/sec2 MV dec time: 0.18 sec PA V2 max: TR max giancarlo: MV P1/2t-pr_phl: 57.8 cm/sec 282.3 cm/sec 56.6 msec PA max PG: TR max P.9 mmHg 1.3 mmHg Left Ventricle The left ventricle is normal in size. There is normal left ventricular wall thickness. LV EF is 60% to 65%. Left ventricular systolic function is normal. Doppler measurements suggest normal left ventricular diastolic function. The left ventricular wall motion is normal. There is no thrombus. Cannot assess ASD,VSD,or PFO,. Right Ventricle The right ventricle is not well visualized secondary to technical limitations. Proabably mildy dilated. Atria The right atrium is normal. The left atrial size is normal. Mitral Valve There is no evidence of mitral valve prolapse. There is no vegetation seen on the mitral valve. There is no mitral valve stenosis. There is a trace amount of mitral regurgitation. Aortic Valve There is no aortic valvular vegetation. There is no aortic valve stenosis. There is aortic sclerosis without aortic stenosis. There is no LVOT obstruction. No aortic regurgitation is present. Tricuspid Valve There is no tricuspid stenosis. There is a trace to mild amount of tricuspid regurgitation. There is mild pulmonary hypertension by echo. RVSP is 37 to 42 mm of mm of Hg , with RA mean of 5 to 10. Pulmonic Valve There is no pulmonic valvular stenosis. There is a trace amount of pulmonic regurgitation. Great Vessels The aortic root is normal size. The inferior vena cava appeared normal and decreased < 50% with respiration (RAP 10-15 mmHg). Effusions There is no pericardial effusion. : PALMA SMITH, Ina
--- NOTE | 2019-09-10 16:09 | PDOC CONSULTATION ---
Consultation-Blank Consultation: CARDIOLOGY CONSULTATION by Dr. Ina Cortez on 09/10/2019. Patient seen at 9 AM. 60 minutes spent on this patient more than 50% time spent in direct patient care. Patient's at bedside. REASON FOR CONSULTATION: Preoperative cardiac risk assessment and the patient scheduled for cholecystectomy. CONSULT REQUESTING PHYSICIAN: Dr. Sloan, surgical history. HISTORY OF PRESENT ILLNESS: Patient is a 88-year-old male who is hard of hearing, who has a history of Parkinson's disease, mild dementia, admitted with abdominal pain and diagnosed with acute cholecystitis with cholelithiasis and is for gallbladder surgery. As per the the patient has a history of hypertension which is well controlled, but is not a diabetic. He has no history of coronary artery disease, NM or anginal symptoms. There is no history of palpitations or syncope. There is no history of PND orthopnea leg edema or any symptoms of congestive heart failure. There is no PND orthopnea. He sustained a right foot drop in the 90s. He also underwent right knee surgery about 2 years ago in [place] without any problems. The patient is able to walk with a walker in spite of his foot drop. There is no history of thyroid disease. There is no history of asthma or COPD. There is no history of sleep apnea. No history of pulmonary embolism. Past Medical History Cardiac Medical History: Reports: Hyperlipidema, Hypertension Denies: Coronary Artery Disease, Myocardial Infarction Pulmonary Medical History: Denies: Asthma, Chronic Obstructive Pulmonary Disease (COPD) EENT Medical History: Denies: Cataracts, Ear" no tinnitus or vertigo. Neurological Medical History: Denies: Hemorrhagic CVA, Ischemic CVA, Seizures Endocrine Medical History: Denies: Diabetes Mellitus Type Hyperthyroidism, Hypothyroidism, Obesity Renal/ Medical History: Reports: Other - Benign prostatic hyperplasia, urinary incontinence Denies: Chronic Kidney Disease, Nephrolithiasis Malignancy Medical History: Reports: None GI Medical History: Reports: Diverticulitis, Hiatal Hernia Denies: Cirrhosis, Crohn's Disease, Hepatitis, Ulcerative Colitis Musculoskeltal Medical History: Reports: Arthritis - Osteoarthritis multiple joints, Other - Ambulatory dysfunction since knee surgeries, requires walker Denies: Gout Skin Medical History: Denies: Eczema, Psoriasis Psychiatric Medical History: Denies: Alcohol Dependency, Substance Abuse, Tobacco Dependency Traumatic Medical History: Reports: None Hematology: Denies: Anemia, Bleeding Tendencies Infectious Medical History: Reports: None Past Surgical History Past Surgical History: Reports: Herniorrhaphy - X7 repairs, Knee Replacement, Orthopedic Surgery - Bilateral arthroscopies of the knees Social History Information Source: Relative - Spouse Lives with: Spouse/Significant other Smoking Status: Never Smoker Electronic Cigarette use?: No Frequency of Alcohol Use: None Hx Recreational Drug Use: No Drugs: None Hx Prescription Drug Abuse: No - Advance Directive Resuscitation Status: DNR Surrogate healthcare decision maker:: The patient's is a surrogate healthcare decision maker. Edna Acevedo Family History Family History: denies: CAD, DM, Hypertension, Malignancy Parental Family History Reviewed: Yes Children Family History Reviewed: No Sibling(s) Family History Reviewed.: Yes Medication/Allergy Home Medications: Lisinopril [Prinivil 40 mg Tablet] 20 mg PO DAILY 02/11/12 Allergies/Adverse Reactions: No Known Allergies Allergy (Unverified 02/11/12 04:28) Review of Systems Constitutional: ABSENT: chills, fever(s) Eyes: ABSENT: visual disturbances, other - Eye pain Ears: ABSENT: Is very hard of hearing, but denies- Ear pain Nose, Mouth, and Throat: ABSENT: headache(s), mouth pain, sore throat Cardiovascular: ABSENT: chest pain, palpitations Respiratory: ABSENT: cough, dyspnea Gastrointestinal: PRESENT: as per HPI, abdominal pain, nausea. ABSENT: constipation, diarrhea, vomiting Genitourinary: ABSENT: dysuria, hematuria Musculoskeletal: ABSENT: back pain, joint swelling, muscle weakness Integumentary: ABSENT: pruritus, rash Neurological: ABSENT: confusion, convulsions, focal weakness, memory loss, syncope Psychiatric: ABSENT: anxiety, depression Endocrine: ABSENT: cold intolerance, heat intolerance Hematologic/Lymphatic: ABSENT: easy bleeding, easy bruising Allergic/Immunologic: ABSENT: seasonal rhinorrhea Physical Exam the patient appears to be well-built. Vital Signs: Selected Entries 09/10/19 08:00 Temperature 97.6 F Temperature Oral Source Pulse Rate 64 Respiratory 16 Rate Blood Pressure 124/67 [Upper Arm] Blood Pressure 86 Mean [Upper Arm ] Blood Pressure Supine Position [Upper Arm] O2 Sat by Pulse 95 Oximetry Oxygen Delivery Room Air Method ( includes room air) General appearance: PRESENT: cooperative, mild distress - Secondary to abdominal pain Head exam: PRESENT: atraumatic, normocephalic Eye exam: PRESENT: conjunctiva pink. ABSENT: conjunctival injection, scleral icterus Ear exam: PRESENT: normal external ear exam. ABSENT: bleeding, drainage Mouth exam: PRESENT: dry mucosa, neck supple Neck exam: ABSENT: JVD, thyromegaly, tracheal deviation Respiratory exam: PRESENT: clear to auscultation mayank, symmetrical, unlabored Cardiovascular exam: S1-S2 is heard. S1 is of normal intensity. There is no S3 gallop. There is no S4 gallop. There is systolic murmur left sternal border and apex. There is murmur of mild aortic sclerosis present. There is no murmur of aortic stenosis or aortic regurgitation. There is no rub Pulses: PRESENT: normal radial pulses, normal dorsalis pedis pul Vascular exam: PRESENT: normal capillary refill. ABSENT: pallor GI/Abdominal exam: PRESENT: hypoactive bowel sounds, soft, tenderness - Moderate to severe periumbilical and right upper quadrant tenderness on light and deep palpation Rectal exam: PRESENT: deferred Extremities exam: ABSENT: joint swelling, pedal edema Musculoskeletal exam: ABSENT: deformity, dislocation Neurological exam: PRESENT: altered - Sedated after receiving morphine, CN II- XII grossly intact. ABSENT: motor sensory deficit Psychiatric exam: The patient is not agitated or anxious. Detailed psych exam not done. Skin exam: PRESENT: dry, intact, warm. ABSENT: jaundice, rash, urticaria Current Medications Acetaminophen (Tylenol 650 Mg Supp) 650 mg FL Q4HP PRN PRN Reason: For headache, pain or fever Stop: 10/09/19 21:31 Dextrose (Dextrose Inj 50% Syringe (25 Gm/50 Ml)) 12.5 gm IV PRN PRN; Protocol PRN Reason: FOR BG 50-69 IN ALERT PATIENT Stop: 10/09/19 21:32 Dextrose (Dextrose Inj 50% Syringe (25 Gm/50 Ml)) 25 gm IV PRN PRN; Protocol PRN Reason: PER PROTOCOL Stop: 10/09/19 21:32 Famotidine (Pepcid Inj/Pf 20 Mg/2 Ml Sdv) 20 mg IV Q12 LARISSA Stop: 10/09/19 21:59 Last Admin: 09/10/19 09:22 Dose: 20 mg Documented by: Glucagon (Glucagen Inj 1 Mg Vial) 1 mg IM PRN PRN; Protocol PRN Reason: Evaluate for BG < 70 Stop: 10/09/19 21:32 Glucose (Glutose 40% Gel 15 Gm Tube) 15 gm PO PRN PRN; Protocol PRN Reason: FOR BG 50-69 IN ALERT PATIENT Stop: 10/09/19 21:32 Glucose (Glutose 40% Gel 15 Gm Tube) 30 gm PO PRN PRN; Protocol PRN Reason: FOR BG < 50 IN ALERT PATIENT Stop: 10/09/19 21:32 Heparin Sodium (Porcine) (Heparin Inj 5,000 Units/Ml 1 Ml Vial) 5,000 unit SUBCUT Q8 [facility] Stop: 10/09/19 21:59 Last Admin: 09/10/19 14:30 Dose: Not Given Documented by: Hydralazine HCl (Apresoline Inj/Pf 20 Mg/1 Ml Sdv) 20 mg IV Q4HP PRN PRN Reason: Give For Sbp > 160 / Dbp > 100 Stop: 10/09/19 21:31 Lactated Ringer's (Lactated Ringers 1000 Ml Iv Soln) 1,000 mls @ 167 mls/hr IV CONTINUOUS PRN PRN Reason: THIS MED IS NOT "PRN" Stop: 10/09/19 21:24 Last Admin: 09/10/19 11:51 Dose: 167 mls/hr Documented by: Piperacillin Sod/Tazobactam (Sod 3.375 gm/ Sodium Chloride) 100 mls @ 200 mls/hr IV Q6A [facility] Stop: 09/17/19 02:59 Last Admin: 09/10/19 15:56 Dose: 200 mls/hr, 200 mls/hr Documented by: Insulin Human Regular (Humulin R (Pyxis) Insulin 100 Unit/Ml 3ml) 0 - 15 unit SUBCUT [facility]; Protocol Stop: 10/09/19 21:59 Last Admin: 09/10/19 11:58 Dose: Not Given Documented by: Levalbuterol HCl (Xopenex Neb 0.63 Mg/3 Ml Ampul) 0.63 mg NEB RTQ2HP PRN PRN Reason: SHORTNESS OF BREATH Stop: 10/09/19 21:31 Metoprolol Tartrate (Lopressor Inj/Pf 5 Mg/5 Ml Sdv) 5 mg IV Q4HP PRN PRN Reason: Give For Sbp > 160 / Dbp > 100 Stop: 10/09/19 21:31 Morphine Sulfate (Morphine 10 Mg/Ml Inj) 2 mg IV Q2HP PRN PRN Reason: FOR PAIN SCALE 1-2 Stop: 09/16/19 21:31 Morphine Sulfate (Morphine 10 Mg/Ml Inj) 3 mg IV Q2HP PRN PRN Reason: FOR PAIN SCALE 3-4 Stop: 09/16/19 21:31 Morphine Sulfate (Morphine 10 Mg/Ml Inj) 4 mg IV Q2HP PRN PRN Reason: PAIN SCALE OF 5 Stop: 09/16/19 21:31 Ondansetron HCl (Zofran Inj/Pf 4 Mg/2 Ml Sdv) 4 mg IV Q4HP PRN PRN Reason: FOR NAUSEA/VOMITING Stop: 10/09/19 21:24 Last Admin: 09/10/19 10:32 Dose: 4 mg Documented by: Sodium Chloride (Saline Flush 2.5 Ml Monoject Prefil Syrin) 2.5 ml IV Q8 LARISSA Stop: 10/09/19 21:59 Last Admin: 09/10/19 14:30 Dose: Not Given Documented by: Discontinued Medications Diphenhydramine HCl (Benadryl Inj 50 Mg/1 Ml Vial) 25 mg IV NOW ONE Stop: 09/10/19 14:46 Last Admin: 09/10/19 14:31 Dose: Not Given Documented by: Diphenhydramine HCl (Benadryl Inj 50 Mg/1 Ml Vial) Confirm Administered Dose 50 mg .ROUTE .STK-MED ONE Stop: 09/10/19 13:44 Last Admin: 09/10/19 13:50 Dose: 25 mg Documented by: Sodium Chloride (Nacl 0.9% 500 Ml Iv Soln) 500 mls @ 0 mls/hr IV NOW ONE Stop: 09/09/19 17:54 Last Infusion: 09/09/19 19:12 Dose: Infused Documented by: Sodium Chloride (Nacl 0.9% 1000 Ml Iv Soln) 1,000 mls @ 125 mls/hr IV NOW ONE Stop: 09/10/19 01:52 Last Infusion: 09/10/19 06:23 Dose: Infused Documented by: Sodium Chloride (Nacl 0.9% 500 Ml Iv Soln) 500 mls @ 0 mls/hr IV NOW ONE Stop: 09/09/19 18:50 Last Infusion: 09/09/19 20:14 Dose: Infused Documented by: Morphine Sulfate (Morphine 10 Mg/Ml Inj) 4 mg IV NOW ONE Stop: 09/09/19 17:12 Last Admin: 09/09/19 17:28 Dose: 4 mg Documented by: Ondansetron HCl (Zofran Inj/Pf 4 Mg/2 Ml Sdv) 4 mg IV NOW ONE Stop: 09/09/19 17:12 Last Admin: 09/09/19 17:37 Dose: 4 mg Documented by: Piperacillin Sod/Tazobactam Sod (Zosyn Inj 3.375 Gm Vial) 3.375 gm IV IVBAG (ED) ONE Stop: 09/09/19 18:49 Last Admin: 09/09/19 19:05 Dose: 3.375 gm Documented by: Piperacillin Sod/Tazobactam Sod (Zosyn Inj 3.375 Gm Vial) 3.375 gm IV ASDIR PRN Stop: 09/10/19 07:00 Piperacillin Sod/Tazobactam Sod (Zosyn Inj 3.375 Gm Vial) Confirm Administered Dose 3.375 gm IV .STK-MED ONE Stop: 09/09/19 23:34 Last Admin: 09/10/19 02:43 Dose: Not Given Documented by: Promethazine HCl (Phenergan Inj 25 Mg/1 Ml Vial) Confirm Administered Dose 25 mg .ROUTE .STK-MED ONE Stop: 09/10/19 11:57 Last Admin: 09/10/19 12:08 Dose: 12.5 mg Documented by: Results EKG:SINUS TACHYCARDIA : MOST likely. Baseline artifact [VBIG] . [LAFB] . LEFT ANTERIOR FASCICULAR BLOCK [AMI4] . ABNRM R PROG, CONSIDER ASMI OR LEAD PLACEMENT [T1AL] . NONSPECIFIC T ABNORMALITIES, ANT-LAT LEADS Echo: The left ventricle is normal in size. There is normal left ventricular wall thickness. LV EF is 60% to 65% Left ventricular systolic function is normal. Doppler measurements suggest normal left ventricular diastolic function The left ventricular wall motion is normal. There is no thrombus. Cannot assess ASD,VSD,or PFO, The right ventricle is not well visualized secondary to technical limitations Proabably mildy dilated. The right atrium is normal. The left atrial size is normal. There is no evidence of mitral valve prolapse. There is no vegetation seen on the mitral valve. There is no mitral valve stenosis. There is a trace amount of mitral regurgitation There is no aortic valvular vegetation. There is no aortic valve stenosis There is aortic sclerosis without aortic stenosis. There is no LVOT obstruction. No aortic regurgitation is present. There is no tricuspid stenosis. There is a trace to mild amount of tricuspid regurgitation There is mild pulmonary hypertension by echo RVSP is 37 to 42 mm of mm of Hg , with RA mean of 5 to 10. There is no pulmonic valvular stenosis. There is a trace amount of pulmonic regurgitation The aortic root is normal size. The inferior vena cava appeared normal and decreased < 50% with respiration (RAP 10-15 mmHg) There is no pericardial effusion. Labs- Entire Visit 09/09/19 09/09/19 09/09/19 16:55 16:55 16:55 WBC 9.3 RBC 4.30 L Hgb 13.7 Hct 39.9 MCV 93 MCH 31.8 MCHC 34.2 RDW 13.6 Plt Count 174 Lymph % (Auto) 7.6 L [place] % (Auto) 1.8 L Eos % (Auto) 0.4 Baso % (Auto) 0.1 Absolute Neuts (auto) 8.4 H Absolute Lymphs (auto) 0.7 Absolute Monos (auto) 0.2 Absolute Eos (auto) 0.0 Absolute Basos (auto) 0.0 Seg Neutrophils % 90.1 H Sodium 153.7 H Potassium 3.9 Chloride 106 Carbon Dioxide 24 Anion Gap 24 H BUN 27 H Creatinine 0.80 Est GFR ( Amer) > 60 Est GFR (MDRD) Non-Af > 60 Glucose 125 H POC Glucose Lactic Acid Calcium 9.0 Magnesium Total Bilirubin 1.9 H Direct Bilirubin 1.3 H Neonat Total Bilirubin Not Reportable Neonat Direct Bilirubin Not Reportable Neonat Indirect Bili Not Reportable AST 688 H ALT 599 Alkaline Phosphatase 322 H Troponin I < 0.012 Total Protein 6.6 Albumin 3.7 Triglycerides Cholesterol LDL Cholesterol Direct VLDL Cholesterol HDL Cholesterol Amylase Lipase 69.0 TSH Free T3 pg/mL 09/09/19 09/09/19 09/10/19 17:46 23:02 04:53 WBC 12.3 H RBC 3.91 L Hgb 12.2 L Hct 36.3 L MCV 93 MCH 31.2 MCHC 33.6 RDW 13.9 Plt Count 159 Lymph % (Auto) [place] % (Auto) Eos % (Auto) Baso % (Auto) Absolute Neuts (auto) Absolute Lymphs (auto) Absolute Monos (auto) Absolute Eos (auto) Absolute Basos (auto) Seg Neutrophils % Sodium Potassium Chloride Carbon Dioxide Anion Gap BUN Creatinine Est GFR ( Amer) Est GFR (MDRD) Non-Af Glucose POC Glucose 149 H Lactic Acid 0.9 Calcium Magnesium Total Bilirubin Direct Bilirubin Neonat Total Bilirubin Neonat Direct Bilirubin Neonat Indirect Bili AST ALT Alkaline Phosphatase Troponin I Total Protein Albumin Triglycerides Cholesterol LDL Cholesterol Direct VLDL Cholesterol HDL Cholesterol Amylase Lipase TSH Free T3 pg/mL 09/10/19 09/10/19 09/10/19 04:53 04:53 07:18 WBC RBC Hgb Hct MCV MCH MCHC RDW Plt Count Lymph % (Auto) [place] % (Auto) Eos % (Auto) Baso % (Auto) Absolute Neuts (auto) Absolute Lymphs (auto) Absolute Monos (auto) Absolute Eos (auto) Absolute Basos (auto) Seg Neutrophils % Sodium 140.4 Potassium 4.2 Chloride 106 Carbon Dioxide 22 Anion Gap 12 BUN 27 H Creatinine 0.94 Est GFR ( Amer) > 60 Est GFR (MDRD) Non-Af > 60 Glucose 139 H POC Glucose 126 H Lactic Acid Calcium 9.4 Magnesium 2.2 Total Bilirubin 2.3 H Direct Bilirubin 1.8 H Neonat Total Bilirubin Not Reportable Neonat Direct Bilirubin Not Reportable Neonat Indirect Bili Not Reportable AST 582 H ALT 698 Alkaline Phosphatase 340 H Troponin I Total Protein 6.2 L Albumin 3.4 L Triglycerides 61 Cholesterol 185.86 LDL Cholesterol Direct 96 VLDL Cholesterol 12.0 HDL Cholesterol 48 Amylase 39 Lipase 26.4 TSH 1.65 Free T3 pg/mL 1.60 L 09/10/19 15:19 WBC RBC Hgb Hct MCV MCH MCHC RDW Plt Count Lymph % (Auto) [place] % (Auto) Eos % (Auto) Baso % (Auto) Absolute Neuts (auto) Absolute Lymphs (auto) Absolute Monos (auto) Absolute Eos (auto) Absolute Basos (auto) Seg Neutrophils % Sodium Potassium Chloride Carbon Dioxide Anion Gap BUN Creatinine Est GFR ( Amer) Est GFR (MDRD) Non-Af Glucose POC Glucose 89 Lactic Acid Calcium Magnesium Total Bilirubin Direct Bilirubin Neonat Total Bilirubin Neonat Direct Bilirubin Neonat Indirect Bili AST ALT Alkaline Phosphatase Troponin I Total Protein Albumin Triglycerides Cholesterol LDL Cholesterol Direct VLDL Cholesterol HDL Cholesterol Amylase Lipase TSH Free T3 pg/mL Chest/Abdomen CTA 09/09/19 16:59 IMPRESSION: No aortic aneurysm, dissection or significant stenosis. Hydropic gallbladder and cholelithiasis with possible small amount of pericholecystic fluid, findings which may be seen with acute cholecystitis. Common bile duct measuring at the upper limits of normal for age at 9 mm without obvious obstructing process. Severe diffuse colon diverticulosis without evidence of acute diverticulitis. Coronary artery disease. Goiter. Chest/Abdomen CTA 09/09/19 16:59 IMPRESSION: No aortic aneurysm, dissection or significant stenosis. Hydropic gallbladder and cholelithiasis with possible small amount of pericholecystic fluid, findings which may be seen with acute cholecystitis. Com mon bile duct measuring at the upper limits of normal for age at 9 mm without obvious obstructing process. Severe diffuse colon diverticulosis without evidence of acute diverticulitis. Coronary artery disease. Goiter. Pelvis CTA 09/09/19 16:59 IMPRESSION: No aortic aneurysm, dissection or significant stenosis. Hydropic gallbladder and cholelithiasis with possible small amount of pericholecystic fluid, findings which may be seen with acute cholecystitis. Common bile duct measuring at the upper limits of normal for age at 9 mm without obvious obstructing process. Severe diffuse colon diverticulosis without evidence of acute diverticulitis. Coronary artery disease. Goiter. Abdomen Ultrasound 09/09/19 18:36 IMPRESSION: Multiple gallstones with increased gallbladder wall thickness, 3.7 mm. No pericholecystic fluid identified.CBD measures 9.7 mm diameter. No filling defects. Poorly visualized pancreas and liver due to acoustical interference from fat - bowel gas. IMPRESSION/RECOMMENDATION: 1. Acute cholecystitis with cholelithiasis: For surgical cholecystectomy for the same. 2. Hypertension: Well-controlled. 3. Intermittent confusion due to mild underlying dementia. 4. No significant valvular disease, and normal left ventricle systolic function and normal diastolic function. 5. Preoperative cardiac risk assessment. Medications reviewed. Discussed with the patient patient's . The patient will be acceptable cardiac risk for this patient to undergo cholecystectomy. Medical decision making is of moderate to high complexity. Will follow Echo findings discussed with the patient and patient's . Will discuss with the surgical list. THE PATIENT WILL BE ACCEPTABLE CARDIAC RISK FOR CHOLECYSTECTOMY:.
[2019-09-10] MEDS ORDERED: MORPHINE SULFATE 10 MG/ML INJ IV PRN (16:37)
[2019-09-10] MEDS ORDERED: HALOPERIDOL LACTATE INJ 5 MG/1 ML VIAL IV ONE (23:45)
[2019-09-11] MEDS: INSULIN REG, HUMAN 100 UNIT/ML 3 ML VIAL (PYX) SUBCUT SCH ×5 (01:08→22:52)
[2019-09-11] MEDS: FAMOTIDINE INJ/PF 20 MG/2 ML SDV IV SCH ×2 (01:12→12:24)
[2019-09-11] MEDS: PIPERACILLIN SODIUM/TAZOBACTAM 3.375 GM in NORMAL SALINE 100 ML IV SCH ×2 (03:37→12:24)
[2019-09-11] MEDS ORDERED: HALOPERIDOL LACTATE INJ 5 MG/1 ML VIAL IV ONE (04:00)
[2019-09-11] MEDS: HEPARIN SOD (PORCINE) 5,000 UNIT/ML 1 ML VIAL SUBCUT SCH ×3 (05:44→22:52)
[2019-09-11 06:32] LABS: HEMATOCRIT 32.9 % (37.9-51.0); HEMOGLOBIN 11.4 g/dL (13.5-17.0); MEAN CORPUSCULAR HEMOGLOBIN 31.7 pg (27.0-33.4); MEAN CORPUSCULAR HGB CONC 34.5 g/dL (32.0-36.0); MEAN CORPUSCULAR VOLUME 92 fl (80-97); PLATELET COUNT 145 10^3/uL (150-450); RED BLOOD COUNT 3.58 10^6/uL (4.35-5.55); WHITE BLOOD COUNT 7.8 10^3/uL (4.0-10.5)
[2019-09-11 06:55] LABS: ALBUMIN 2.9 g/dL (3.5-5.0); ALKALINE PHOSPHATASE 251 U/L (38-126); ANION GAP 8 (5-19); ASPARTATE AMINO TRANSFERASE 221 U/L (17-59); BILIRUBIN,DIRECT 0.7 mg/dL (0.0-0.4); BILIRUBIN,TOTAL 1.3 mg/dL (0.2-1.3); BLOOD UREA NITROGEN 25 mg/dL (7-20); CALCIUM 9.3 mg/dL (8.4-10.2); CARBON DIOXIDE 24 mmol/L (22-30); CHLORIDE 112 mmol/L (98-107); GLUCOSE 72 mg/dL (75-110); POTASSIUM 3.6 mmol/L (3.6-5.0); TOTAL PROTEIN 5.4 g/dL (6.3-8.2)
--- NOTE | 2019-09-11 08:26 | PDOC PROGRESS REPORT ---
Subjective Progress Note for:: 09/11/19 Subjective:: Confused unable to follow commands unable to participate in any discussion, unavailable Reason For Visit: ACUTE CHOLECYSTITIS Physical Exam Vital Signs: Temp Pulse Resp BP Pulse Ox 97.6 F 79 16 126/67 H 92 09/10/19 16:00 09/11/19 07:46 09/11/19 07:46 09/10/19 16:00 09/11/19 07:46 Intake & Output 09/10/19 09/11/19 09/12/19 06:59 06:59 06:59 Intake Total 3100 1400 Output Total 200 Balance 2900 1400 Weight 79.7 kg 80.2 kg General appearance: PRESENT: mild distress Head exam: PRESENT: normocephalic Eye exam: PRESENT: EOMI Ear exam: PRESENT: normal external ear exam Mouth exam: PRESENT: moist Teeth exam: PRESENT: poor dentation Neck exam: PRESENT: full ROM Respiratory exam: PRESENT: clear to auscultation mayank Cardiovascular exam: PRESENT: RRR Pulses: PRESENT: normal radial pulses, normal femoral pulses GI/Abdominal exam: PRESENT: soft Rectal exam: PRESENT: deferred Extremities exam: PRESENT: full ROM Musculoskeletal exam: PRESENT: full ROM Neurological exam: PRESENT: awake Skin exam: PRESENT: dry Results Laboratory Results: 09/11/19 05:04 09/11/19 05:04 09/11/19 09/11/19 05:04 05:04 WBC 7.8 RBC 3.58 L Hgb 11.4 L Hct 32.9 L MCV 92 MCH 31.7 MCHC 34.5 RDW 14.0 Plt Count 145 L Sodium 144.2 Potassium 3.6 Chloride 112 H Carbon Dioxide 24 Anion Gap 8 BUN 25 H Creatinine 1.08 Est GFR ( Amer) > 60 Glucose 72 L Calcium 9.3 Total Bilirubin 1.3 AST 221 H Alkaline Phosphatase 251 H Total Protein 5.4 L Albumin 2.9 L 09/09/19 16:55 Troponin I < 0.012 Impressions: Chest/Abdomen CTA 09/09/19 16:59 IMPRESSION: No aortic aneurysm, dissection or significant stenosis. Hydropic gallbladder and cholelithiasis with possible small amount of pericholecystic fluid, findings which may be seen with acute cholecystitis. Common bile duct measuring at the upper limits of normal for age at 9 mm without obvious obstructing process. Severe diffuse colon diverticulosis without evidence of acute diverticulitis. Coronary artery disease. Goiter. Pelvis CTA 09/09/19 16:59 IMPRESSION: No aortic aneurysm, dissection or significant stenosis. Hydropic gallbladder and cholelithiasis with possible small amount of pericholecystic fluid, findings which may be seen with acute cholecystitis. Common bile duct measuring at the upper limits of normal for age at 9 mm without obvious obstructing process. Severe diffuse colon diverticulosis without evidence of acute diverticulitis. Coronary artery disease. Goiter. Abdomen Ultrasound 09/09/19 18:36 IMPRESSION: Multiple gallstones with increased gallbladder wall thickness, 3.7 mm. No pericholecystic fluid identified.CBD measures 9.7 mm diameter. No filling defects. Poorly visualized pancreas and liver due to acoustical interference from fat - bowel gas. Assessment & Plan - Time Time Spent with patient: 25-34 minutes - Plan Summary Plan Summary: Impression is acute cholecystitis which is seems to be responding to IV antibiotics However the patient is moderately to severely demented is unable to participate in any discussion about surgery is unavailable this morning. Dr. Hagen saw the patient yesterday and feels that he is an acceptable cardiac risk for laparoscopic cholecystectomy. Will discuss further with the hospitalist regarding any planned surgery secondary to his moderate to severe dementia. He does seem to be responding to the IV antibiotics.
[2019-09-11] MEDS ORDERED: RISPERIDONE 0.25 MG TABLET PO PRN (11:06)
[2019-09-11] MEDS ORDERED: ONDANSETRON 4 MG TAB.RAPDIS ONE (12:58)
[2019-09-11] MEDS ORDERED: HALOPERIDOL LACTATE INJ 5 MG/1 ML VIAL ONE (13:12)
[2019-09-11] MEDS ORDERED: HALOPERIDOL LACTATE INJ 5 MG/1 ML VIAL IM ONE (13:15)
[2019-09-11] MEDS ORDERED: ONDANSETRON HCL INJ/PF 4 MG/2 ML SDV IV PRN (13:24)
[2019-09-11] MEDS: AMOXICILLIN TR/POT CLAVULANATE 500-125 MG TAB PO SCH ×2 (14:48→22:51)
[2019-09-11] MEDS ORDERED: DEXTROSE 5%-NORMAL SALINE 1,000 ML IV PRN (17:44)
[2019-09-11] MEDS ORDERED: PIPERACILLIN SODIUM/TAZOBACTAM 3.375 GM in NORMAL SALINE 100 ML IV SCH (18:00)
--- NOTE | 2019-09-11 18:13 | PDOC PROGRESS REPORT ---
Subjective Progress Note for:: 09/10/19 Subjective:: The patient is an 88-year-old male with a past medical history of hypertension, hyperlipidemia, hard of hearing, DM 2, BPH, osteoarthritis, and early dementia (intermittent confusion and forgetfulness) who was admitted 09/09/2019 for acute cholecystitis. Patient was seen on morning rounds with his at bedside. He was found resting in bed, comfortably, on room air. He appeared to have difficulty understanding me but did respond appropriately to all questions and statements made by his spouse. His only complaint at present is a headache; requesting Tylenol. He denies current abdominal discomfort, nausea, and vomiting. However, he is noted to have bilious vomitus in his emesis bag. He denies fever, chills, chest pain, palpitations, dyspnea, orthopnea, cough. They have no questions or concerns at this time; hopeful to receive cardiac clearance for cholecystectomy. Nursing reports the patient had an episode of acute agitation this afternoon following administration of IV Phenergan. Patient had demonstrated increased confusion and agitation prior to administration. Seems to have abated following Benadryl. Reason For Visit: ACUTE CHOLECYSTITIS Physical Exam Vital Signs: Temp Pulse Resp BP Pulse Ox 97.6 F 72 16 126/67 H 93 09/10/19 16:00 09/10/19 16:00 09/10/19 16:00 09/10/19 16:00 09/10/19 16:00 Intake & Output 09/09/19 09/10/19 09/11/19 06:59 06:59 06:59 Intake Total 3100 100 Output Total 200 Balance 2900 100 Weight 79.7 kg General appearance: PRESENT: no acute distress, cooperative, hard of hearing, well-developed, well-nourished Head exam: PRESENT: atraumatic, normocephalic Eye exam: PRESENT: conjunctiva pink, EOMI, PERRLA. ABSENT: scleral icterus Ear exam: PRESENT: normal external ear exam Mouth exam: PRESENT: dry mucosa, tongue midline Respiratory exam: PRESENT: clear to auscultation mayank, symmetrical, unlabored. ABSENT: rales, rhonchi, wheezes Cardiovascular exam: PRESENT: RRR, +S1, +S2. ABSENT: diastolic murmur, rubs, systolic murmur Pulses: PRESENT: normal dorsalis pedis pul Vascular exam: PRESENT: normal capillary refill GI/Abdominal exam: PRESENT: normal bowel sounds, soft, tenderness - epigastric. ABSENT: distended, guarding, mass, organolmegaly, rebound Rectal exam: PRESENT: deferred Extremities exam: PRESENT: full ROM. ABSENT: calf tenderness, clubbing, pedal edema Neurological exam: PRESENT: alert, awake, oriented to person, oriented to place, oriented to time, oriented to situation, CN II-XII grossly intact, other - forgetful; slight increase in confusion per . ABSENT: motor sensory deficit Psychiatric exam: PRESENT: appropriate affect, normal mood. ABSENT: homicidal ideation, suicidal ideation Skin exam: PRESENT: dry, intact, warm. ABSENT: cyanosis, rash Results Laboratory Results: 09/10/19 04:53 09/10/19 04:53 09/09/19 09/09/19 09/09/19 16:55 16:55 17:46 WBC 9.3 RBC 4.30 L Hgb 13.7 Hct 39.9 MCV 93 MCH 31.8 MCHC 34.2 RDW 13.6 Plt Count 174 Seg Neutrophils % 90.1 H Sodium 153.7 H Potassium 3.9 Chloride 106 Carbon Dioxide 24 Anion Gap 24 H BUN 27 H Creatinine 0.80 Est GFR ( Amer) > 60 Glucose 125 H Lactic Acid 0.9 Calcium 9.0 Magnesium Total Bilirubin 1.9 H AST 688 H Alkaline Phosphatase 322 H Total Protein 6.6 Albumin 3.7 Triglycerides Cholesterol LDL Cholesterol Direct VLDL Cholesterol HDL Cholesterol Amylase Lipase 69.0 TSH Free T3 pg/mL 09/10/19 09/10/19 09/10/19 04:53 04:53 04:53 WBC 12.3 H RBC 3.91 L Hgb 12.2 L Hct 36.3 L MCV 93 MCH 31.2 MCHC 33.6 RDW 13.9 Plt Count 159 Seg Neutrophils % Sodium 140.4 Potassium 4.2 Chloride 106 Carbon Dioxide 22 Anion Gap 12 BUN 27 H Creatinine 0.94 Est GFR ( Amer) > 60 Glucose 139 H Lactic Acid Calcium 9.4 Magnesium 2.2 Total Bilirubin 2.3 H AST 582 H Alkaline Phosphatase 340 H Total Protein 6.2 L Albumin 3.4 L Triglycerides 61 Cholesterol 185.86 LDL Cholesterol Direct 96 VLDL Cholesterol 12.0 HDL Cholesterol 48 Amylase 39 Lipase 26.4 TSH 1.65 Free T3 pg/mL 1.60 L 12/29/19 16:55 Troponin I < 0.012 Impressions: Chest/Abdomen CTA 09/09/19 16:59 IMPRESSION: No aortic aneurysm, dissection or significant stenosis. Hydropic gallbladder and cholelithiasis with possible small amount of pericholecystic fluid, findings which may be seen with acute cholecystitis. Common bile duct measuring at the upper limits of normal for age at 9 mm without obvious obstructing process. Severe diffuse colon diverticulosis without evidence of acute diverticulitis. Coronary artery disease. Goiter. Pelvis CTA 09/09/19 16:59 IMPRESSION: No aortic aneurysm, dissection or significant stenosis. Hydropic gallbladder and cholelithiasis with possible small amount of pericholecystic fluid, findings which may be seen with acute cholecystitis. Common bile duct measuring at the upper limits of normal for age at 9 mm without obvious obstructing process. Severe diffuse colon diverticulosis without evidence of acute diverticulitis. Coronary artery disease. Goiter. Abdomen Ultrasound 09/09/19 18:36 IMPRESSION: Multiple gallstones with increased gallbladder wall thickness, 3.7 mm. No pericholecystic fluid identified.CBD measures 9.7 mm diameter. No filling defects. Poorly visualized pancreas and liver due to acoustical interference from fat - bowel gas. Assessment and Plan - Diagnosis (1) Acute cholecystitis due to biliary calculus Is this a current diagnosis for this admission?: Yes Plan: Primary management per the surgical team. Cardiology is consulted for surgical clearance. Currently n.p.o., continue gentle IV fluids. The patient is empirically placed on IV Zosyn; Day #1 Analgesics and antiemetics as needed. Follow up chemistry. (2) Biliary colic Is this a current diagnosis for this admission?: Yes Plan: Secondary to #1. Evaluation management as above. (3) Hyperlipidemia Qualifiers: Hyperlipidemia type: unspecified Qualified Code(s): E78.5 - Hyperlipidemia, unspecified Is this a current diagnosis for this admission?: Yes Plan: Lipid panel is acceptable; LDL 96, HDL 48, triglycerides 61, total cholesterol 185. Currently n.p.o. Advance to cardiac diet once cleared by surgery. (4) Hypertension Qualifiers: Hypertension type: essential hypertension Qualified Code(s): I10 - Essential (primary) hypertension Is this a current diagnosis for this admission?: Yes Plan: Blood pressure is acceptable at present. Resume outpatient regiment once cleared by surgery for p.o. intake. IV Toprol and hydralazine as needed for blood pressure control. (5) Urinary incontinence Qualifiers: Urinary Incontinence type: unspecified incontinence Qualified Code(s): R32 - Unspecified urinary incontinence Is this a current diagnosis for this admission?: Yes Plan: Meticulous hygiene to prevent skin breakdown. (6) Benign prostatic hyperplasia Qualifiers: Lower urinary tract symptom presence: unspecified whether lower urinary tract symptoms present Qualified Code(s): N40.0 - Benign prostatic hyperplasia without lower urinary tract symptoms Is this a current diagnosis for this admission?: Yes Plan: Monitor closely for evidence of acute urinary retention. (7) Acute delirium Is this a current diagnosis for this admission?: Yes Plan: Multifactorial secondary to acute pain, and medication adverse reaction (Phenergan) further complicated by analgesics and likely underlying dementia. Benadryl x1 with improvement in symptoms. Avoid any further Phenergan use if at all possible. Supportive care. Fall precautions. (8) Elevated LFTs Is this a current diagnosis for this admission?: Yes Plan: Likely secondary to acute cholecystitis. Continue IV fluids. Follow-up chemistry. Remaining management as above. - Time Time Spent with patient: 25-34 minutes Medications reviewed and adjusted accordingly: Yes Anticipated discharge: Home
--- NOTE | 2019-09-11 18:18 | PDOC PROGRESS REPORT ---
Subjective Progress Note for:: 09/11/19 Subjective:: The patient is an 88-year-old male with a past medical history of hypertension, hyperlipidemia, hard of hearing, DM 2, BPH, osteoarthritis, and early dementia (intermittent confusion and forgetfulness) who was admitted 09/09/2019 for acute cholecystitis. Patient was seen on morning rounds with his at bedside. He was found resting in bed, comfortably, on room air. Unfortunately, the patient became acutely confused and agitated overnight; required IV Haldol and soft limb restraints. The time of my visit this morning, the patient was calm and cooperative; oriented to self and place. He is requesting to go home. Long discussion had with the patient's spouse and discharge planning at bedside; have decided against surgical intervention. They request conservative management with supportive care and antibiotics only. Patient spouse understands that the patient's agitation and confusion will likely worsen during his hospital stay and especially if he were to receive anesthesia. Therefore, the patient was transitioned to p.o. medications and placed on a clear liquid diet trial today in anticipation of possible discharge tomorrow. However, this afternoon, the patient became acutely agitated again and required IM Haldol (had removed his IV) and was again placed in soft limb restraints. Anticipate will be difficult to get this patient calm enough to safely discharged home. He denies fever, chills, chest pain, palpitations, dyspnea, orthopnea, cough. They have no other questions or concerns at this time. No other concerns per nursing. Reason For Visit: ACUTE CHOLECYSTITIS Physical Exam Vital Signs: Temp Pulse Resp BP Pulse Ox 98.7 F 116 H 16 126/83 H 92 09/11/19 08:00 09/11/19 18:10 09/11/19 08:00 09/11/19 08:00 09/11/19 07:46 Intake & Output 09/10/19 09/11/19 09/12/19 06:59 06:59 06:59 Intake Total 3100 1400 Output Total 200 Balance 2900 1400 Weight 79.7 kg 80.2 kg General appearance: PRESENT: no acute distress, well-developed, well-nourished. ABSENT: cooperative Head exam: PRESENT: atraumatic, normocephalic Eye exam: PRESENT: conjunctiva pink, EOMI, PERRLA. ABSENT: scleral icterus Ear exam: PRESENT: normal external ear exam Mouth exam: PRESENT: moist, tongue midline Respiratory exam: PRESENT: clear to auscultation mayank, symmetrical, unlabored. ABSENT: rales, rhonchi, wheezes Cardiovascular exam: PRESENT: RRR, +S1, +S2. ABSENT: diastolic murmur, rubs, systolic murmur Pulses: PRESENT: normal dorsalis pedis pul Vascular exam: PRESENT: normal capillary refill GI/Abdominal exam: PRESENT: normal bowel sounds, soft. ABSENT: distended, guarding, mass, organolmegaly, rebound, tenderness Rectal exam: PRESENT: deferred Extremities exam: PRESENT: full ROM. ABSENT: calf tenderness, clubbing, pedal edema Neurological exam: PRESENT: alert, awake, oriented to person, oriented to place, CN II-XII grossly intact, other - Intermittently acutely agitated/confused. ABSENT: oriented to time, oriented to situation, motor sensory deficit Psychiatric exam: PRESENT: appropriate affect, normal mood. ABSENT: homicidal ideation, suicidal ideation Skin exam: PRESENT: dry, intact, warm. ABSENT: cyanosis, rash Results Laboratory Results: 09/11/19 05:04 09/11/19 05:04 09/11/19 09/11/19 05:04 05:04 WBC 7.8 RBC 3.58 L Hgb 11.4 L Hct 32.9 L MCV 92 MCH 31.7 MCHC 34.5 RDW 14.0 Plt Count 145 L Sodium 144.2 Potassium 3.6 Chloride 112 H Carbon Dioxide 24 Anion Gap 8 BUN 25 H Creatinine 1.08 Est GFR ( Amer) > 60 Glucose 72 L Calcium 9.3 Total Bilirubin 1.3 AST 221 H Alkaline Phosphatase 251 H Total Protein 5.4 L Albumin 2.9 L 09/09/19 16:55 Troponin I < 0.012 Impressions: Chest/Abdomen CTA 09/09/19 16:59 IMPRESSION: No aortic aneurysm, dissection or significant stenosis. Hydropic gallbladder and cholelithiasis with possible small amount of pericholecystic fluid, findings which may be seen with acute cholecystitis. Common bile duct measuring at the upper limits of normal for age at 9 mm without obvious obstructing process. Severe diffuse colon diverticulosis without evidence of acute diverticulitis. Coronary artery disease. Goiter. Pelvis CTA 09/09/19 16:59 IMPRESSION: No aortic aneurysm, dissection or significant stenosis. Hydropic gallbladder and cholelithiasis with possible small amount of pericholecystic fluid, findings which may be seen with acute cholecystitis. Common bile duct measuring at the upper limits of normal for age at 9 mm without obvious obstructing process. Severe diffuse colon diverticulosis without evidence of acute diverticulitis. Coronary artery disease. Goiter. Abdomen Ultrasound 09/09/19 18:36 IMPRESSION: Multiple gallstones with increased gallbladder wall thickness, 3.7 mm. No pericholecystic fluid identified.CBD measures 9.7 mm diameter. No filling defects. Poorly visualized pancreas and liver due to acoustical interference from fat - bowel gas. Assessment and Plan - Diagnosis (1) Acute cholecystitis due to biliary calculus Is this a current diagnosis for this admission?: Yes Plan: Primary management per the surgical team. Cardiology is consulted for surgical clearance. Advance to clear liquid diet, continue gentle IV fluids until taking adequate p.o. The patient was empirically placed on IV Zosyn; transitioned to p.o. Augmentin today. Analgesics and antiemetics as needed. (2) Biliary colic Is this a current diagnosis for this admission?: Yes Plan: Secondary to #1. Evaluation management as above. (3) Hyperlipidemia Qualifiers: Hyperlipidemia type: unspecified Qualified Code(s): E78.5 - Hyperlipidemia, unspecified Is this a current diagnosis for this admission?: Yes Plan: Lipid panel is acceptable; LDL 96, HDL 48, triglycerides 61, total cholesterol 185. Advance to cardiac diet once cleared by surgery. Continue to hold statin medications. (4) Hypertension Qualifiers: Hypertension type: essential hypertension Qualified Code(s): I10 - Essential (primary) hypertension Is this a current diagnosis for this admission?: Yes Plan: Blood pressure is acceptable at present. Resume home dose lisinopril. IV Toprol and hydralazine as needed for blood pressure control. (5) Urinary incontinence Qualifiers: Urinary Incontinence type: unspecified incontinence Qualified Code(s): R32 - Unspecified urinary incontinence Is this a current diagnosis for this admission?: Yes Plan: Meticulous hygiene to prevent skin breakdown. (6) Benign prostatic hyperplasia Qualifiers: Lower urinary tract symptom presence: unspecified whether lower urinary tract symptoms present Qualified Code(s): N40.0 - Benign prostatic hyperplasia without lower urinary tract symptoms Is this a current diagnosis for this admission?: Yes Plan: Monitor closely for evidence of acute urinary retention. (7) Acute delirium Is this a current diagnosis for this admission?: Yes Plan: Multifactorial secondary to hospital psychosis, acute pain, and medication adverse reaction (Phenergan) further complicated by analgesics and likely underlying dementia. IV Haldol as needed for acute agitation. Trial of risperidone every 8 hours as needed. Consider starting Depakote twice daily. Supportive care. Fall precautions. (8) Elevated LFTs Is this a current diagnosis for this admission?: Yes Plan: Trending down. Likely secondary to acute cholecystitis. Continue IV fluids. Follow-up chemistry. Remaining management as above. - Time Time Spent with patient: 25-34 minutes Medications reviewed and adjusted accordingly: Yes Anticipated discharge: Home with Homehealth Within: within 24 hours
[2019-09-11] MEDS: LISINOPRIL 10 MG TABLET PO SCH (19:03)
[2019-09-11] MEDS: HALOPERIDOL LACTATE INJ 5 MG/1 ML VIAL IV PRN (19:07)
[2019-09-11] MEDS: FAMOTIDINE 20 MG TABLET PO SCH (22:51)
[2019-09-12 05:29] LABS: HEMATOCRIT 33.3 % (37.9-51.0); HEMOGLOBIN 11.3 g/dL (13.5-17.0); MEAN CORPUSCULAR HEMOGLOBIN 31.5 pg (27.0-33.4); MEAN CORPUSCULAR HGB CONC 33.9 g/dL (32.0-36.0); MEAN CORPUSCULAR VOLUME 93 fl (80-97); PLATELET COUNT 151 10^3/uL (150-450); RED BLOOD COUNT 3.59 10^6/uL (4.35-5.55); RED CELL DISTRIBUTION WIDTH 13.9 % (11.5-14.0); WHITE BLOOD COUNT 6.9 10^3/uL (4.0-10.5)
[2019-09-12] MEDS: HEPARIN SOD (PORCINE) 5,000 UNIT/ML 1 ML VIAL SUBCUT SCH (05:39)
[2019-09-12] MEDS: AMOXICILLIN TR/POT CLAVULANATE 500-125 MG TAB PO SCH (05:43)
[2019-09-12 05:49] LABS: ALBUMIN 3.2 g/dL (3.5-5.0); ALKALINE PHOSPHATASE 246 U/L (38-126); ANION GAP 10 (5-19); ASPARTATE AMINO TRANSFERASE 131 U/L (17-59); BILIRUBIN,DIRECT 0.4 mg/dL (0.0-0.4); BILIRUBIN,TOTAL 0.9 mg/dL (0.2-1.3); BLOOD UREA NITROGEN 25 mg/dL (7-20); CALCIUM 9.5 mg/dL (8.4-10.2); CARBON DIOXIDE 24 mmol/L (22-30); CHLORIDE 112 mmol/L (98-107); GLUCOSE 96 mg/dL (75-110); POTASSIUM 4.1 mmol/L (3.6-5.0); TOTAL PROTEIN 5.9 g/dL (6.3-8.2)
[2019-09-12] MEDS: HALOPERIDOL LACTATE INJ 5 MG/1 ML VIAL IV PRN (07:52)
[2019-09-12] MEDS: INSULIN REG, HUMAN 100 UNIT/ML 3 ML VIAL (PYX) SUBCUT SCH ×2 (08:05→11:44)
[2019-09-12] MEDS ORDERED: DIVALPROEX SODIUM 250 MG TABLET.DR PO SCH (10:00)
[2019-09-12] MEDS ORDERED: (PENDING PHARMACY ID) (Lisinopril [Prinivil 40 Mg Tablet] 20 MG) PO SCH (10:00)
[2019-09-12] MEDS ORDERED: HALOPERIDOL 5 MG TABLET PO PRN (10:52)
[2019-09-12] MEDS ORDERED: BUSPIRONE HCL 10 MG TABLET PO SCH (11:00)
[2019-09-12] MEDS: LISINOPRIL 10 MG TABLET PO SCH (11:17)
[2019-09-12] MEDS: FAMOTIDINE 20 MG TABLET PO SCH (11:17)
[2019-09-12 12:56] VITALS: BP 137/120
--- NOTE | 2019-09-12 13:07 | PDOC PROGRESS REPORT ---
Subjective Progress Note for:: 09/12/19 Subjective:: Patient appears to have deteriorated mentally. claims patient unable to respond and for a while has been combative last night. He has not been eating. Reason For Visit: ACUTE CHOLECYSTITIS Physical Exam Vital Signs: Temp Pulse Resp BP Pulse Ox 97.7 F 74 20 138/104 H 92 09/12/19 12:40 09/12/19 12:40 09/12/19 12:40 09/12/19 12:40 09/12/19 12:40 Intake & Output 09/11/19 09/12/19 09/13/19 06:59 06:59 06:59 Intake Total 1400 50 Balance 1400 50 Weight 80.2 kg 80.5 kg Exam: Abdomen appears to be soft with no significant tenderness. Results Laboratory Results: 09/12/19 04:52 09/12/19 04:52 09/12/19 09/12/19 04:52 04:52 WBC 6.9 RBC 3.59 L Hgb 11.3 L Hct 33.3 L MCV 93 MCH 31.5 MCHC 33.9 RDW 13.9 Plt Count 151 Sodium 146.0 H Potassium 4.1 Chloride 112 H Carbon Dioxide 24 Anion Gap 10 BUN 25 H Creatinine 0.96 Est GFR ( Amer) > 60 Glucose 96 Calcium 9.5 Total Bilirubin 0.9 AST 131 H Alkaline Phosphatase 246 H Total Protein 5.9 L Albumin 3.2 L 09/09/19 16:55 Troponin I < 0.012 Impressions: Chest/Abdomen CTA 09/09/19 16:59 IMPRESSION: No aortic aneurysm, dissection or significant stenosis. Hydropic gallbladder and cholelithiasis with possible small amount of pericholecystic fluid, findings which may be seen with acute cholecystitis. Common bile duct measuring at the upper limits of normal for age at 9 mm without obvious obstructing process. Severe diffuse colon diverticulosis without evidence of acute diverticulitis. Coronary artery disease. Goiter. Pelvis CTA 09/09/19 16:59 IMPRESSION: No aortic aneurysm, dissection or significant stenosis. Hydropic gallbladder and cholelithiasis with possible small amount of pericholecystic fluid, findings which may be seen with acute cholecystitis. Common bile duct measuring at the upper limits of normal for age at 9 mm without obvious obstructing process. Severe diffuse colon diverticulosis without evidence of acute diverticulitis. Coronary artery disease. Goiter. Abdomen Ultrasound 09/09/19 18:36 IMPRESSION: Multiple gallstones with increased gallbladder wall thickness, 3.7 mm. No pericholecystic fluid identified.CBD measures 9.7 mm diameter. No filling defects. Poorly visualized pancreas and liver due to acoustical interference from fat - bowel gas. Assessment & Plan - Diagnosis (1) Acute cholecystitis due to biliary calculus Is this a current diagnosis for this admission?: Yes (2) Dementia Is this a current diagnosis for this admission?: Yes (3) Elevated LFTs Is this a current diagnosis for this admission?: Yes - Time Time Spent with patient: 15-24 minutes - Inpatient Certification Medical Necessity: Need Close Monitoring Due to Risk of Patient Decompensation, Need for IV Antibiotics - Plan Summary Plan Summary: 88-year-old male with history of progressing dementia to the point of patient not eating and not responding to his . Has acute cholecystitis with now elevated LFTs. Patient will likely need an ERCP followed by laparoscopic cholecystectomy. Patient however noted to have progressive dementia and feels that her is not a candidate for any procedure since any procedure would likely worsen his mental condition. She feels that she cannot take care of her at home. She agrees to have the patient placed in a hospice care. This was discussed then with the hospitalist will make arrangements for hospice. We will then sign off and call for any questions.
--- NOTE | 2019-09-12 18:32 | PDOC DISCHARGE SUMMARY ---
Impression - Admit/DC Date/PCP Admission Date/Primary Care Provider: 09/09/19 21:59 Discharge Date: 09/12/19 - Discharge Diagnosis (1) Acute cholecystitis due to biliary calculus Is this a current diagnosis for this admission?: Yes (2) Biliary colic Is this a current diagnosis for this admission?: Yes (3) Hyperlipidemia Is this a current diagnosis for this admission?: Yes (4) Hypertension Is this a current diagnosis for this admission?: Yes (5) Urinary incontinence Is this a current diagnosis for this admission?: Yes (6) Benign prostatic hyperplasia Is this a current diagnosis for this admission?: Yes (7) Acute delirium Is this a current diagnosis for this admission?: Yes (8) Elevated LFTs Is this a current diagnosis for this admission?: Yes - Additional Information Resuscitation Status: Full Code Discharge Diet: As Tolerated Discharge Activity: Activity As Tolerated, Balance Activity w/Rest, Supervised Activity Referrals: HOME,HEALTH [Other] BUNDLE,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] - Prescriptions: Amox Tr/Potassium Clavulanate [Augmentin "500" Tablet] 1 tab PO Q8 #21 tablet Buspirone HCl [Buspar 10 mg Tablet] 10 mg PO Q12 #60 tablet Divalproex Sodium [Depakote Er 250 Mg Tablet] 250 mg PO BID #60 tab.sr.24h Haloperidol [Haldol 5 mg Tablet] 5 mg PO Q8HP PRN #90 tablet PRN Reason: Home Medications: Lisinopril [Prinivil 40 mg Tablet] 20 mg PO DAILY 02/11/12 Acetaminophen [Tylenol 650 mg Supp] 650 mg AK Q4HP PRN supp.rect 09/12/19 Amox Tr/Potassium Clavulanate [Augmentin "500" Tablet] 1 tab PO Q8 #21 tablet 09/12/19 Buspirone HCl [Buspar 10 mg Tablet] 10 mg PO Q12 #60 tablet 09/12/19 Divalproex Sodium [Depakote Er 250 Mg Tablet] 250 mg PO BID #60 tab.sr.24h 09/12/19 Haloperidol [Haldol 5 mg Tablet] 5 mg PO Q8HP PRN #90 tablet 09/12/19 History of Present Illiness History of Present Illness: Per H&P by Dr. Wisdom: FRANKLYN FRIEND is a 88 year old male who presented to the emergency room with acute abdominal pain. Patient and his admit the sudden onset of severe constant colicky periumbilical pain without radiation 2 to 3 hours prior to their emergency room presentation. Pain was accompanied by nausea and associated with severe restlessness. They deny other associated or accompanying signs and symptoms. They deny prior similar episodes. They have not identified any aggravating or ameliorating factors for his abdominal pain. In the emergency room patient was found to have cholelithiasis with presumed early acute cholecystitis. Initially surgery planned to admit the patient however they have now decided to have the medicine service admit the patient and consult them for further evaluation. Hospital Course Hospital Course: The patient was admitted to the medical floor on continuous cardiac telemetry for acute cholelithiasis with cholecystitis. Surgery was consulted but advised patient required formal cardiac consultation prior to proceeding. He was placed in n.p.o. status and supported with IV fluids, antiemetics, and analgesics. Echocardiogram was obtained; LVEF 60 to 65% with normal left ventricular diastolic function and mild pulmonary hypertension. Dr. Betancourt was consulted and has indicated that the patient did have acceptable cardiac risk for to undergo cholecystectomy. Over the first 24-hour period, the patient grew progressively confused. Long discussion was had with the ; patient does have underlying, though previously unrecognized, dementia. Patient's reports that she assumed financial consultant several years ago due to the patient's forgetfulness. She also reports that he frequently forgets places and names and does wander in the household rearranging knickknacks. Unfortunately, the patient experienced an acute exacerbation of delirium following administration of Phenergan for active vomiting not responsive to Zofran. Although the patient has had intermittent brief episodes of decreased agitation/confusion, he has not yet returned to his baseline mental function since that time (48 hours later). Multiple discussions had between the patient's , myself and social work administrator regarding medication adverse reaction, hospital psychosis, and delirium in patients with underlying dementia. We did discuss the possibility that following general anesthesia, the patient's delirium could potentially worsen and that there is always the potential for permanent advancement of dementia disease. She recognized that the best option for cognitive return would be for the patient to return home as soon as possible. After further discussion with Dr. Luevano; the patient's decided to forego surgical intervention and to proceed with discharge to home. Fortunately, the patient's LFTs began trending downward and had nearly returned to normal by day of discharge. The patient is no longer complaining of abdominal discomfort and has had no further episodes of emesis. He does have poor p.o. intake; but is tolerating small bites of pudding/applesauce with medications. Hopefully his appetite will improve upon return to home. With discharge planning, we explored potential options for long-term placement at a memory care facility. We also discussed, in detail, home health services available through home health agencies, self-pay, [facility], and palliative care with hospice bridge. The patient is discharged home, in stable condition, although remains disoriented from his baseline. Arrangements have been made for the patient to receive home health nursing, PT/OT, aide, and social work administrator services. A palliative care consultation is also being placed as the patient's is interested in bridging to hospice services should his mentation and appetite not improve upon return to home. indicates that she has family members and pentec[employer]al friends who will be able to provide assistance over the next 48 to 72 hours to provide 24-hour supervision. She is advised to call emergency services if they find that there are safety concerns that cannot be managed at home. Physical Exam Vital Signs: Temp Pulse Resp BP Pulse Ox 97.7 F 74 20 138/104 H 92 09/12/19 12:40 09/12/19 12:40 09/12/19 12:40 09/12/19 12:40 09/12/19 12:40 Intake & Output 09/11/19 09/12/19 09/13/19 06:59 06:59 06:59 Intake Total 1400 50 Balance 1400 50 Weight 80.2 kg 80.5 kg General appearance: PRESENT: no acute distress, cooperative, well-developed, well-nourished Head exam: PRESENT: atraumatic, normocephalic Eye exam: PRESENT: conjunctiva pink, EOMI, PERRLA. ABSENT: scleral icterus Ear exam: PRESENT: normal external ear exam Mouth exam: PRESENT: moist, tongue midline Respiratory exam: PRESENT: clear to auscultation mayank, symmetrical, unlabored. ABSENT: rales, rhonchi, wheezes Cardiovascular exam: PRESENT: RRR, +S1, +S2. ABSENT: diastolic murmur, rubs, systolic murmur Pulses: PRESENT: normal dorsalis pedis pul Vascular exam: PRESENT: normal capillary refill GI/Abdominal exam: PRESENT: normal bowel sounds, soft. ABSENT: distended, guarding, mass, organolmegaly, rebound, tenderness Rectal exam: PRESENT: deferred Extremities exam: PRESENT: full ROM. ABSENT: calf tenderness, clubbing, pedal edema Neurological exam: PRESENT: alert, awake, oriented to person, CN II-XII grossly intact, other - Intermittent confusion and agitation; difficulty with redirection. Worse overnight.. ABSENT: motor sensory deficit Psychiatric exam: PRESENT: appropriate affect, normal mood. ABSENT: homicidal ideation, suicidal ideation Skin exam: PRESENT: dry, intact, warm. ABSENT: cyanosis, rash Results Laboratory Results: WBC 6.9 10^3/uL (4.0-10.5) 09/12/19 04:52 RBC 3.59 10^6/uL (4.35-5.55) L 09/12/19 04:52 Hgb 11.3 g/dL (13.5-17.0) L 09/12/19 04:52 Hct 33.3 % (37.9-51.0) L 09/12/19 04:52 MCV 93 fl (80-97) 09/12/19 04:52 MCH 31.5 pg (27.0-33.4) 09/12/19 04:52 MCHC 33.9 g/dL (32.0-36.0) 09/12/19 04:52 RDW 13.9 % (11.5-14.0) 09/12/19 04:52 Plt Count 151 10^3/uL (150-450) 09/12/19 04:52 Lymph % (Auto) 7.6 % (13-45) L 09/09/19 16:55 Story % (Auto) 1.8 % (3-13) L 09/09/19 16:55 Eos % (Auto) 0.4 % (0-6) 09/09/19 16:55 Baso % (Auto) 0.1 % (0-2) 09/09/19 16:55 Absolute Neuts (auto) 8.4 10^3/uL (1.7-8.2) H 09/09/19 16:55 Absolute Lymphs (auto) 0.7 10^3/uL (0.5-4.7) 09/09/19 16:55 Absolute Monos (auto) 0.2 10^3/uL (0.1-1.4) 09/09/19 16:55 Absolute Eos (auto) 0.0 10^3/uL (0.0-0.6) 09/09/19 16:55 Absolute Basos (auto) 0.0 10^3/uL (0.0-0.2) 09/09/19 16:55 Seg Neutrophils % 90.1 % (42-78) H 09/09/19 16:55 Sodium 146.0 mmol/L (137-145) H 09/12/19 04:52 Potassium 4.1 mmol/L (3.6-5.0) 09/12/19 04:52 Chloride 112 mmol/L (98-107) H 09/12/19 04:52 Carbon Dioxide 24 mmol/L (22-30) 09/12/19 04:52 Anion Gap 10 (5-19) 09/12/19 04:52 BUN 25 mg/dL (7-20) H 09/12/19 04:52 Creatinine 0.96 mg/dL (0.52-1.25) 09/12/19 04:52 Est GFR ( Amer) > 60 (>60) 09/12/19 04:52 Est GFR (MDRD) Non-Af > 60 (>60) 09/12/19 04:52 Glucose 96 mg/dL (75-110) 09/12/19 04:52 POC Glucose 120 mg/dL (70-110) H 09/12/19 10:10 Lactic Acid 0.9 mmol/L (0.7-2.1) 09/09/19 17:46 Calcium 9.5 mg/dL (8.4-10.2) 09/12/19 04:52 Magnesium 2.2 mg/dL (1.6-2.3) 09/10/19 04:53 Total Bilirubin 0.9 mg/dL (0.2-1.3) 09/12/19 04:52 Direct Bilirubin 0.4 mg/dL (0.0-0.4) 09/12/19 04:52 Neonat Total Bilirubin Not Reportable 09/12/19 04:52 Neonat Direct Bilirubin Not Reportable 09/12/19 04:52 Neonat Indirect Bili Not Reportable 09/12/19 04:52 AST 131 U/L (17-59) H 09/12/19 04:52 ALT 301 U/L (<50) 09/12/19 04:52 Alkaline Phosphatase 246 U/L (38-126) H 09/12/19 04:52 Troponin I < 0.012 ng/mL 09/09/19 16:55 Total Protein 5.9 g/dL (6.3-8.2) L 09/12/19 04:52 Albumin 3.2 g/dL (3.5-5.0) L 09/12/19 04:52 Triglycerides 61 mg/dL (<150) 09/10/19 04:53 Cholesterol 185.86 mg/dL (0-200) 09/10/19 04:53 LDL Cholesterol Direct 96 mg/dL (<100) 09/10/19 04:53 VLDL Cholesterol 12.0 mg/dL (10-31) 09/10/19 04:53 HDL Cholesterol 48 mg/dL (>40) 09/10/19 04:53 Amylase 39 U/L (30-110) 09/10/19 04:53 Lipase 26.4 U/L (23-300) 09/10/19 04:53 TSH 1.65 uIU/mL (0.47-4.68) 09/10/19 04:53 Free T3 pg/mL 1.60 pg/mL (2.77-5.27) L 09/10/19 04:53 09/09/19 16:55 Troponin I < 0.012 Impressions: Chest/Abdomen CTA 09/09/19 16:59 IMPRESSION: No aortic aneurysm, dissection or significant stenosis. Hydropic gallbladder and cholelithiasis with possible small amount of pericholecystic fluid, findings which may be seen with acute cholecystitis. Common bile duct measuring at the upper limits of normal for age at 9 mm without obvious obstructing process. Severe diffuse colon diverticulosis without evidence of acute diverticulitis. Coronary artery disease. Goiter. Chest/Abdomen CTA 09/09/19 16:59 IMPRESSION: No aortic aneurysm, dissection or significant stenosis. Hydropic gallbladder and cholelithiasis with possible small amount of pericholecystic fluid, findings which may be seen with acute cholecystitis. Common bile duct measuring at the upper limits of normal for age at 9 mm without obvious obstructing process. Severe diffuse colon diverticulosis without evidence of acute diverticulitis. Coronary artery disease. Goiter. Pelvis CTA 09/09/19 16:59 IMPRESSION: No aortic aneurysm, dissection or significant stenosis. Hydropic gallbladder and cholelithiasis with possible small amount of pericholecystic fluid, findings which may be seen with acute cholecystitis. Common bile duct measuring at the upper limits of normal for age at 9 mm without obvious obstructing process. Severe diffuse colon diverticulosis without evidence of acute diverticulitis. Coronary artery disease. Goiter. Abdomen Ultrasound 09/09/19 18:36 IMPRESSION: Multiple gallstones with increased gallbladder wall thickness, 3.7 mm. No pericholecystic fluid identified.CBD measures 9.7 mm diameter. No filling defects. Poorly visualized pancreas and liver due to acoustical interference from fat - bowel gas. Stroke Is this a Stroke Patient?: No Acute Heart Failure - Is this a Heart Failure Patient?: No
== END 2019-09-12 13:05 | disposition home health service (06) | DRG 446 ==
LOC: ER 16:41 → EH 21:59 → 5 22:46
PROVIDERS: ADMIT Emergency Medicine; ATTEND Emergency Medicine
DX: K80.00 Calculus of gallbladder with acute cholecystitis without obstruction (principal); I27.20 Pulmonary hypertension, unspecified; F03.90 Unspecified dementia, unspecified severity, without behavioral disturbance, psychotic disturbance, mood disturbance, and anxiety; E78.5 Hyperlipidemia, unspecified; I10 Essential (primary) hypertension; N40.0 Benign prostatic hyperplasia without lower urinary tract symptoms; M21.371 Foot drop, right foot; H91.90 Unspecified hearing loss, unspecified ear; E11.9 Type 2 diabetes mellitus without complications; K44.9 Diaphragmatic hernia without obstruction or gangrene; M19.90 Unspecified osteoarthritis, unspecified site; R41.0 Disorientation, unspecified; R79.89 Other specified abnormal findings of blood chemistry; R32 Unspecified urinary incontinence; Z96.653 Presence of artificial knee joint, bilateral; Z82.49 Family history of ischemic heart disease and other diseases of the circulatory system
CPT/HCPCS: 36415; 71275; 72191; 74175; 76705; 80053; 80061; 82150; 82962; 83605; 83690; 83735; 84443; 84481; 84484; 85025; 85027; 93005; 93010; 93306; 96361; 96365; 96375; 99291; J1200; J1630; J1644; J2270; J2405; J2543; J2550; J3490; J7030; J7040; J7042; J7050; J7120; J7614; S0028